=== PATIENT | female | born 1970 | race Caucasian/White ===

== ENCOUNTER 2016-08-26 17:13 | Emergency (ER) | payer BC ==
[~2016-08-26] VITALS: Ht 175.3 cm; Wt 123.5 kg
[~2016-08-26 17:13] MED LIST: ALBUAER9 INH; CHOL20005 PO; CYCL10TA6 PO; LORA-741 PO; MONT1TAB3 PO; MULTTAB58 PO; PRLSR20 PO; TRIA0.1C20 TD; VITA400C15 PO
[2016-08-26 17:21] VITALS: TEMP 37; Ht 175.3 cm; Wt 123.5 kg
[2016-08-26] MEDS ORDERED: SODIUM CHLORIDE 0.9% 1000ML 1,000 ML IV STA (17:49)
[2016-08-26] MEDS ORDERED: MoRPHine SULFATE 10 MG/ML CARP/VIAL IV STA (17:49)
[2016-08-26] MEDS ORDERED: ONDANSETRON INJ 2 MG/ML 2 ML VIAL IV STA (17:49)
[2016-08-26 18:07] LABS: BASO % 0.2 %; BASO ABS # 0.02 K/uL (0-0.2); COMPLETE YES; EOS % 1.7 %; HEMATOCRIT 36.2 % (37-47); IG% 0.3 %; LYMPH % 22.6 %; LYMPH ABS # 2.34 K/uL (1.2-3.4); MEAN CELL VOLUME 81.9 fL (80-100); MEAN CORPUSCULAR HGB CONC 35.4 g/dl (32-36); MEAN PLATELET VOLUME 10.7 fL (7.4-10.4); MONO % 10.3 %; NEUT % 64.9 %; PLATELET COUNT 207 K/uL (130-400); RED BLOOD COUNT 4.42 M/uL (4.2-5.4); WHITE BLOOD COUNT 10.34 K/uL (4.8-10.8)
[2016-08-26] MEDS ORDERED: ALBUAER INH (18:20)
[2016-08-26] MEDS ORDERED: TRMCR130WC TD (18:20)
[2016-08-26] MEDS ORDERED: VTME400 PO (18:20)
[2016-08-26 18:22] LABS: URINE APPEARANCE CLEAR (CLEAR); URINE BILIRUBIN NEG (NEG); URINE COLOR YELLOW; URINE EPITHELIAL CELL AUTO >30 /lpf (0-5); URINE NITRITE NEG (NEG); URINE SPECIFIC GRAVITY 1.015 (1.000-1.030); UROBILINOGEN NEG (NEG)
[2016-08-26 18:27] LABS: BUN/CREATININE RATIO 13.8 (10-20); CALCIUM 8.6 mg/dl (8.5-10.1); CREATININE 0.69 mg/dl (0.60-1.20); POTASSIUM 3.7 mmol/L (3.5-5.1)
[2016-08-26 18:30] LABS: MANUAL MICROSCOPIC REQUIRED? NO; REVIEW REQ? NO
--- NOTE | 2016-08-26 18:39 | DIAGNOSTIC IMAGING REPORT ---
CT OF THE ABDOMEN AND PELVIS WITHOUT CONTRAST, STONE PROTOCOL CLINICAL HISTORY: Left flank pain and hematuria. COMPARISON STUDY: CT of the abdomen and pelvis July 12, 2015. TECHNIQUE: Helical axial images of the abdomen and pelvis were obtained without IV or oral contrast according to renal stone protocol. FINDINGS: No renal, ureteral or bladder calculi are present. There is no hydronephrosis or hydroureter. There is no perinephric infiltration. Evaluation of the remainder of the abdomen and pelvis is suboptimal on this unenhanced exam. There is no biliary ductal dilatation status post cholecystectomy. There is fatty infiltration of the liver. Borderline splenomegaly is unchanged. Unenhanced images of the adrenal glands and pancreas are normal. The caliber of small and large bowel are normal. The appendix is likely surgically absent. There is a 3 cm suspected left ovarian cyst. No lymphadenopathy is present. No suspicious skeletal lesions are present. There is a small fat-containing umbilical hernia. IMPRESSION: 1. No urinary calculi or hydronephrosis. 2. No acute process within the abdomen or pelvis on unenhanced exam. 3. Suspected left ovarian cysts measuring up to 3 cm. Electronically signed by: Yousif Leigh M.D. 08/26/2016 6:37 PM Dictated Date/Time: 08/26/2016 6:32 PM
[2016-08-26] MEDS ORDERED: MoRPHine SULFATE 4 MG/ML 1 ML CARP\\VIAL IV STA (18:53)
[2016-08-26 20:05] VITALS: BP 138/93; PULSE 78; O2SAT 96
--- NOTE | 2016-08-27 00:14 | EMERGENCY ROOM VISIT NOTE ---
ED Visit Note First contact with patient: 17:25 Chief Complaint: Severe left side abdominal pain. History of Present Illness: Ms. Hope is a 46 year-old white female who ambulates into the ED complaining of left lateral mid quadrant/flank pain. Historically patient reports of gastric ulcers, gallbladder disease, and pyelonephritis. Patient reports a gradual onset of pain that started yesterday morning. She reports she remembers doing yard work over the weekend but after the our work was over she was not experiencing any discomfort. She places her discomfort over the lateral border of the abdomen in the posterior axillary line at the L1- L2 area. She reports initially it was an achy sensation but has gradually increased and is now a sharp sensation. She currently rates her discomfort 9/ 10. She does feel the pain is radiating around the abdomen and into the right lower quadrant. Her pain worsens when she is sitting reclined and she has a slight decrease when she is sitting upright. She reports since 3 PM yesterday she has been alternating ibuprofen and acetaminophen every 3 hours with only minimal relief of her discomfort. Associated with her pain she reports that she has been nauseated but has not vomited. Patient denies fevers, chills, sweats, skin eruptions, skin color changes, upper respiratory tract symptoms, shortness of breath, chest pain, diarrhea, constipation, rectal bleeding, black/tarry stools, urinary symptoms, hematuria, vaginal bleeding, vaginal discharge, back/flank pain. Review of Systems: As noted above in history of present illness. All body systems were reviewed and found to be negative as noted above. Past Medical History: Asthma, bronchitis, pneumonia, unspecified skin disorder. Current Medications: Medications Dose Route/Sig Max Daily Dose Days Date Category Dose Instructions Aristocort 0.1% (Triamcinolone Acet) 90 Appln/30 Gm Cr 1 Appln TD UD PRN 08/26/16 Reported APPLY A THIN LAYER TO THE AFFECTED AREA(S) TWICE DAILY NEEDED Proventil Hfa (Albuterol Sulfate) 108 Mcg/Act Aer 1-2 Puffs INH Q4 PRN 08/26/16 Reported Vitamin E/Dl-Alpha (Tocopheryl Acet,Dl-Alpha) 400 Unit Cap 400 Unit PO DAILY 08/26/16 Reported Multivitamin (Multiple Vitamin) 1 Tab Tab 1 Tab PO DAILY 10/04/13 Reported Ativan (Lorazepam) 0.5 Mg Tab 0.5 Mg PO BID PRN 09/14/13 Reported Flexeril (Cyclobenzaprine Hcl) 10 Mg Tab 10 Mg PO BID PRN 09/14/13 Reported Prilosec (Omeprazole) Unknown Strength Capcr Unknown Dose PO BID 01/28/10 Reported Allergies to Medications: Patient denies. Social History: Patient is currently employed; she feels safe in her home environment; she denies tobacco use and admits to social alcohol use. Physical Examination: Vital Signs: Date Time Temp Pulse Resp B/P Pulse Ox O2 Delivery O2 Flow Rate FiO2 08/26/16 20:05 78 18 138/93 96 08/26/16 18:50 100 18 151/80 100 Room Air 08/26/16 17:21 37.0 89 20 161/105 98 Room Air GENERAL: 46-year-old female in mild to moderate distress due to pain, nontoxic- appearing, afebrile and hemodynamically stable. NEUROLOGICAL: Awake, alert and oriented to person, place and time. Answering questions appropriately and following commands. Normal gait. Good hand eye coordination. SKIN: Warm, dry and pink. No soft tissue eruptions or trauma noted. HEENT: Atraumatic and normocephalic. PERRLA. Sclera white and conjunctiva pink. Oral cavity moist and pink. Pharynx is nonerythematous or edematous. Speech normal. No lymphadenopathy. Trachea midline. No jugular venous distention. BACK: No tenderness over the bony thoracic or lumbar spine. Moderate tenderness in the lumbar paraspinous musculature in the same area of her pain without palpable spasm. No CVA tenderness. THORAX: Lungs sounds are clear to auscultation and equal bilaterally with symmetrical chest wall. No wheezing, rales or rhonchi. No crepitus, tenderness , subcutaneous air or deformities noted. HEART: Regular rate and rhythm. No gallops, rubs or murmurs are appreciated. ABDOMEN: Flat, soft and nontender. Positive bowel sounds in all quadrants. No guarding, rigidity or organomegaly. EXTREMITIES: Moves all extremities well on command and with purpose. All distal neurovascular statuses are intact and equal bilaterally. ED Course: Patient is assessed as noted above. Laboratory Testing: Test 08/26/16 17:30 08/26/16 18:00 Range/Units Urine Color YELLOW Urine Appearance CLEAR CLEAR Urine pH 7.0 4.5-7.5 Urine Specific [place] 1.015 1.000-1.030 Urine Protein NEG NEG Urine Glucose (UA) NEG NEG Urine Ketones NEG NEG Urine Occult Blood NEG NEG Urine Nitrite NEG NEG Urine Bilirubin NEG NEG Urine Urobilinogen NEG NEG Urine Leukocyte Esterase TRACE NEG Urine WBC (Auto) 1-5 0-5 /hpf Urine RBC (Auto) 0-4 0-4 /hpf Urine Hyaline Casts (Auto) 1-5 0-5 /lpf Urine Epithelial Cells (Auto) >30 0-5 /lpf Urine Bacteria (Auto) 1+ NEG Urine Test NEG NEG White Blood Count 10.34 4.8-10.8 K/uL Red Blood Count 4.42 4.2-5.4 M/uL Hemoglobin 12.8 12.0-16.0 g/dL Hematocrit 36.2 37-47 % Mean Corpuscular Volume 81.9 80-100 fL Mean Corpuscular Hemoglobin 29.0 25-34 pg Mean Corpuscular Hemoglobin Concent 35.4 32-36 g/dl Platelet Count 207 130-400 K/uL Mean Platelet Volume 10.7 7.4-10.4 fL Neutrophils (%) (Auto) 64.9 % Lymphocytes (%) (Auto) 22.6 % Monocytes (%) (Auto) 10.3 % Eosinophils (%) (Auto) 1.7 % Basophils (%) (Auto) 0.2 % Neutrophils # (Auto) 6.70 1.4-6.5 K/uL Lymphocytes # (Auto) 2.34 1.2-3.4 K/uL Monocytes # (Auto) 1.07 0.11-0.59 K/uL Eosinophils # (Auto) 0.18 0-0.5 K/uL Basophils # (Auto) 0.02 0-0.2 K/uL RDW Standard Deviation 39.8 36.4-46.3 fL RDW Coefficient of Variation 13.2 11.5-14.5 % Immature Granulocyte % (Auto) 0.3 % Immature Granulocyte # (Auto) 0.03 0.00-0.02 K/uL Sodium Level 140 136-145 mmol/L Potassium Level 3.7 3.5-5.1 mmol/L Chloride Level 105 98-107 mmol/L Carbon Dioxide Level 24 21-32 mmol/L Anion Gap 11.0 3-11 mmol/L Blood Urea Nitrogen 10 7-18 mg/dl Creatinine 0.69 0.60-1.20 mg/dl Est Creatinine Clear Calc Drug Dose 144.9 ml/min Estimated GFR () 121.8 Estimated GFR (Non- 105.1 BUN/Creatinine Ratio 13.8 10-20 Random Glucose 84 70-99 mg/dl Calcium Level 8.6 8.5-10.1 mg/dl Total Bilirubin 0.6 0.2-1 mg/dl Direct Bilirubin 0.1 0-0.2 mg/dl Aspartate Amino Transf (AST/SGOT) 15 15-37 U/L Alanine Aminotransferase (ALT/SGPT) 39 12-78 U/L Alkaline Phosphatase 36 45-117 U/L Total Protein 6.8 6.4-8.2 gm/dl Albumin 3.8 3.4-5.0 gm/dl Lipase 98 73-393 U/L Noncontrast Abdominal/Pelvic CT: Was reviewed by myself and read by the radiologist showing no renal, ureter or bladder calculi, no hydronephrosis or hydroureter. No perinephric infiltration. No biliary duct dilatation, status post cholecystectomy. Fatty infiltration of liver. Borderline splenomegaly a unchanged from previous CT. Adrenal and pancreas appear normal. Normal- appearing caliber of the small and large bowel. Appendix was not identified. 3 cm left ovarian cyst. No lymphadenopathy. No suspicious skeletal lesions. Small fat-containing umbilical hernia. Patient was hydrated with normal saline and she received a total of 8 mg of morphine IV and 4 mg of Zofran IV for her symptoms. Patient was reassessed multiple times during her stay in the emergency department. Patient's case was reviewed with Dr. Guido; we agreed on diagnostic approach, treatment, disposition and plan. Patient was educated about candyight's findings and instructed on her treatment plan; she verbalizes understanding and agreement with this plan. Clinical Impression: Left flank pain. Decision-Making: Initially my differential diagnosis I considered kidney stone, pyelonephritis, worsening splenomegaly, constipation, diverticulitis, colitis, musculoskeletal disorder, pancreatitis and other causes. Disposition: Patient discharged home in stable condition; prior to departure she was reassessed and subjectively reported she was feeling better and rated her discomfort 3/10. Plan: Patient was encouraged to alternate acetaminophen and ibuprofen every 3 hours as needed for pain. Patient was encouraged to stay well-hydrated with increased clear fluids. Patient was encouraged to continue her current prescribed medications Patient was encouraged to follow-up with her primary care physician. Patient was encouraged return the ED for worsening/uncontrolled pain, fevers, vomiting, bloody stools or/concerning symptoms.
[2017-01-23] MEDS ORDERED: VITA400C3 PO (08:52)
[2017-01-23] MEDS ORDERED: CHOL1000 PO (08:52)
[2017-01-23] MEDS ORDERED: FEXO1TAB49 PO (08:52)
[2017-01-23] MEDS ORDERED: OMEP20TA40 PO (08:52)
[2017-01-29] MEDS ORDERED: MONT1TAB5 PO (12:52)
[2017-01-29] MEDS ORDERED: IBUP-103 PO (12:52)
== END 2016-08-26 20:10 | disposition home or self-care (01) ==
LOC: C.EDB 17:15 → C.EDC 20:10
DX: R10.31 Right lower quadrant pain (principal); J45.909 Unspecified asthma, uncomplicated; Z87.01 Personal history of pneumonia (recurrent); Z79.899 Other long term (current) drug therapy

== ENCOUNTER → 2017-01-23 | Outpatient (CLI) | payer BC ==
[~2017-01-23] MED LIST changes: +ALBUAER INH; -ALBUAER9 INH; +CHOL1000 PO; -CHOL20005 PO; +FEXO1TAB49 PO; +IBUP-103 PO; -MONT1TAB3 PO; +MONT1TAB5 PO; +OMEP20TA40 PO; -TRIA0.1C20 TD; +TRMCR130WC TD; -VITA400C15 PO; +VITA400C3 PO; +VTME400 PO
--- NOTE | 2017-01-23 16:02 | MAMMOGRAPHY REPORT ---
BILATERAL DIGITAL SCREENING MAMMOGRAM TOMOSYNTHESIS WITH CAD: 01/23/2017 CLINICAL HISTORY: Asymptomatic. Personal history of breast cancer. TECHNIQUE: Breast tomosynthesis in addition to standard 2D mammography was performed. Current study was also evaluated with a Computer Aided Detection (CAD) system. COMPARISON: Comparison is made to exams dated: 10/18/2014 mammogram, 02/02/2013 mammogram, 12/02/2011 ml mogram, 11/26/2010 mammogram, 11/07/2009 mammogram - [facility], and 09/09/2006. BREAST COMPOSITION: The tissue of both breasts is heterogeneously dense, which may obscure small mas ses. FINDINGS: No suspicious masses, calcifications, or areas of architectural distortion are noted in ei ther breast. There has been no significant interval change compared to prior exams. There are stable postsurgical changes in the left breast, with a linear scar marker denoting a scar on the left super ior breast. A few scattered bilateral benign-appearing calcifications are again noted. IMPRESSION: ACR BI-RADS CATEGORY 2: BENIGN There is no mammographic evidence of malignancy. A 1 year screening mammogram is recommended. The pa tient will receive written notification of the results. Approximately 10% of breast cancers are not detected with mammography. A negative mammographic report should not delay biopsy if a clinically suggestive mass is present. Armida Alcala M.D. /:01/23/2017 15:44:07 County Demonstrator: Ade Gonzalez [facility] letter sent: Normal 1/2 BI-RADS Code: ACR BI-RADS Category 2: Benign
== END | disposition home or self-care (01) ==
LOC: C.MAMM 14:21
PROVIDERS: ATTEND Obstetrics & Gynecology
DX: Z12.31 Encounter for screening mammogram for malignant neoplasm of breast (principal)

== ENCOUNTER → 2017-01-29 | Day surgery (SDC) | payer BC ==
[2017-01-23 08:52] VITALS: Ht 172.7 cm; Wt 122.7 kg
[~2017-01-29] VITALS: Ht 172.7 cm; Wt 122.7 kg
[~2017-01-29] MED LIST changes: +LIDOCAINE HCL 2% 2 ML VIAL (20MG/ML) ONE; -MULTTAB58 PO; +ONDANSETRON INJ 2 MG/ML 2 ML VIAL ONE; -PRLSR20 PO; +PROPOFOL IV EMULSION 10 MG/ML 20 ML VIAL IV ONE; +SODIUM CHLORIDE 0.9% 500ML 500 ML IV ONE; -TRMCR130WC TD; -VTME400 PO
--- NOTE | 2017-01-29 13:36 | Endo History and Physical ---
History & Physical Date of Service: Jan 29, 2017. Chief Complaint: Acid Reflux, Dysphagia Referring Physician: Dr. Graves History of Present Illness 46 yo CF who presents for EGD secondary to GERD and Dysphagia. Past Medical History Fractures, Asthma, Gastrointestinal Disorder, Anxiety, Reflux, Cancer, Depression Past Surgical History Hx Cardiac Surgery: No Hx Internal Defibrillator: No Hx Pacemaker: No Hx Abdominal Surgery: Yes (LAP AZUL, APPY, LAPAROSCOPY X MANY(GYNE)) Hx of Implantable Prosthesis: No Hx Post-Op Nausea and Vomiting: Yes Hx Cancer Surgery: Yes (PARTIAL MASTECTOMY, AXILLARY NODE DISECTION) Hx Thoracic Surgery: No Hx Orthopedic: No Hx Urinary Tract Surgery: No Family History None Social History Smoking Status: Former Smoker Hx Substance Use: No Hx Alcohol Use: Yes (5 A WEEK) Allergies Coded Allergies: NO KNOWN DRUG ALLERGIES (Verified Allergy, Mild, ., 01/29/17) Adhesives (Verified Allergy, Unknown, RED;RAW;TORN SKIN, 01/29/17) Current Medications Reported Home Medications Medications Dose Route/Sig Max Daily Dose Days Date Category Advil (Ibuprofen) 200 Mg Tab 200-600 Mg PO Q4H 01/29/17 Reported Montelukast Sodium 10 Mg Tab 1 Tab PO DAILY 30 01/29/17 Reported Vitamin E 400 Iu (Vitamin E) 400 Unit Cap 400 Inter.unit PO QAM 01/23/17 Reported Vitamin D3 (Cholecalciferol) 1,000 Unit Tab 1 Tab PO QAM 01/23/[address] [facility] Omeprazole (Omeprazole) 20 Mg Tab 20 Mg PO BID 01/23/17 Reported Proventil Hfa (Albuterol Sulfate) 108 Mcg/Act Aer 1-2 Puffs INH Q4 PRN 08/26/16 Reported Ativan (Lorazepam) 0.5 Mg Tab 0.5 Mg PO BID PRN 09/14/13 Reported Flexeril (Cyclobenzaprine Hcl) 10 Mg Tab 10 Mg PO BID PRN 09/14/13 Reported Vital Signs Weight (Kilograms): 122.73 Height (Feet): 5 Height (Inches): 8 Date Time Temp Pulse Resp B/P (MAP) Pulse Ox O2 Delivery O2 Flow Rate FiO2 01/29/17 13:01 36.8 102 18 165/93 (117) 96 Room Air Physical Exam General Appearance: WD/WN, no apparent distress Respiratory/Chest: Auscultation: breath sounds normal Cardiovascular: Heart Auscultation: RRR Abdomen: Bowel Sounds: normal Inspection & Palpation: soft, non-distended, no tenderness, guarding & rebound Assessment and Plan Assessment: 46 yo CF who presents for EGD secondary to GERD and Dysphagia. Plan: Proceed with EGD.
--- NOTE | 2017-01-29 13:57 | Discharge Instructions ---
Endoscopy Patient Instructions Date / Procedure(s) Performed Jan 29, 2017. EGD Allergy Information Coded Allergies: NO KNOWN DRUG ALLERGIES (Verified Allergy, Mild, ., 01/29/17) Adhesives (Verified Allergy, Unknown, RED;RAW;TORN SKIN, 01/29/17) Discharge Date / Findings Jan 29, 2017. Gastric biopsies Medication Instructions OK to resume all medications today as prescribed Reported Home Medications Medications Dose Route/Sig Max Daily Dose Days Date Category Advil (Ibuprofen) 200 Mg Tab 200-600 Mg PO Q4H 01/29/17 Reported Montelukast Sodium 10 Mg Tab 1 Tab PO DAILY 30 01/29/17 Reported Vitamin E 400 Iu (Vitamin E) 400 Unit Cap 400 Inter.unit PO QAM 01/23/17 Reported Vitamin D3 (Cholecalciferol) 1,000 Unit Tab 1 Tab PO QAM 01/23/17 [address] [facility] Omeprazole (Omeprazole) 20 Mg Tab 20 Mg PO BID 01/23/17 Reported Proventil Hfa (Albuterol Sulfate) 108 Mcg/Act Aer 1-2 Puffs INH Q4 PRN 08/26/16 Reported Ativan (Lorazepam) 0.5 Mg Tab 0.5 Mg PO BID PRN 09/14/13 Reported Flexeril (Cyclobenzaprine Hcl) 10 Mg Tab 10 Mg PO BID PRN 09/14/13 Reported Provider Instructions Activity Restrictions - No exercising or heavy lifting for 24 hours. - Do not drink alcohol the day of the procedure. - Do not drive a car or operate machinery until the day after the procedure. - Do not make any important decisions or sign important papers in 24 hours after the procedure. Following Day: - Return to full activity which may include returning to work/school. Diet Start your diet with liquids and light foods (jello, soup, juice, toast). Then eat your usual diet if not nauseated. Treatment For Common After Affects For mild abdominal pain, bloating, or excessive gas: - Rest - Eat lightly - Lie on right side Follow-Up Information Follow-up with Dr. Isbell as scheduled Anesthesia Information What You Should Know You have had a procedure that required some medicine to reduce anxiety and discomfort. This treatment is called moderate sedation. After receiving the treatment, you may be sleepy, but you will be able to breathe on your own. The effects of the treatment may last for several hours. Follow these instructions along with Activity/Diet recommendations noted above: * Do NOT do anything where dizziness or clumsiness would be dangerous. * Rest quietly at home today, then you can be up and about tomorrow. * Have a responsible person stay with you the rest of today. * You may have had an I.V. today. If so, you may take the dressing off later today. Recommendations Call your doctor if: * Trouble breathing * Continuous vomiting for more than 24 hours * Temperature above 101 degrees * Severe abdominal pain or bloating * Pain not relieved by pain medicine ordered * There is increased drainage or redness from any incision * A large amount of rectal bleeding greater than 2-3 tablespoons. (If you had a polyp/s removed or have hemorrhoids, a small amount of blood - from the rectum is to be expected.) * You have any unanswered questions or concerns. IN THE EVENT OF A SERIOUS EMERGENCY, GO TO THE NEAREST EMERGENCY ROOM Your discharge instructions were prepared by provider Josiah Bueno. Patient Instructions Signature Page Bree Hope Patient (or Guardian) Signature/Date: I have read and understand the instructions given to me by my caregivers. Caregiver/RN/Doctor Signature/Date: The above-named patient and/or guardian has received patient instructions on this date. + Original Patient Signature Page (only) stays with chart. Please make copy for patient.
--- NOTE | 2017-01-29 14:00 | GI REPORT ---
Procedure Date: 01/29/2017 1:31 PM Procedure: Upper GI endoscopy Indications: Dysphagia, Gastro-esophageal reflux disease Medicines: Monitored Anesthesia Care Complications: No immediate complications. Estimated Blood Loss: Estimated blood loss: none. Procedure: Pre-Anesthesia Assessment: - Prior to the procedure, a History and Physical was performed, and patient medications and allergies were reviewed. The patient's tolerance of previous anesthesia was also reviewed. The risks and benefits of the procedure and the sedation options and risks were discussed with the patient. All questions were answered, and informed consent was obtained. Prior Anticoagulants: The patient has taken no previous anticoagulant or antiplatelet agents. ASA Grade Assessment: II - A patient with mild systemic disease. After reviewing the risks and benefits, the patient was deemed in satisfactory condition to undergo the procedure. After obtaining informed consent, the endoscope was passed under direct vision. Throughout the procedure, the patient's blood pressure, pulse, and oxygen saturations were monitored continuously. The scope was introduced through the mouth, and advanced to the second part of duodenum. The upper GI endoscopy was accomplished without difficulty. The patient tolerated the procedure well. Findings: The esophagus was normal. The entire examined stomach was normal. Biopsies were taken with a cold forceps for Helicobacter pylori testing. The examined duodenum was normal. Impression: - Normal esophagus. - Normal stomach. Biopsied. - Normal examined duodenum. Recommendation: - Resume previous diet. - Continue present medications. - Await pathology results. - Return to GI clinic as previously scheduled. Josiah Bueno DO 01/29/2017 1:59:34 PM This report has been signed electronically. Note Initiated On: 01/29/2017 1:31 PM I attest to the content of the Intraoperative Record and orders documented therein, exceptions below
--- NOTE | 2017-01-29 14:15 | Anesthesiology Progress Note ---
Anesthesia Post Op Note Date & Time Jan 29, 2017 at 14:15 Vital Signs Pain Intensity: 0 Vital Signs Past 12 Hours Date Time Temp Pulse Resp B/P (MAP) Pulse Ox O2 Delivery O2 Flow Rate FiO2 01/29/17 14:12 93 16 119/82 (94) 97 Room Air 01/29/17 13:57 101 16 115/80 (92) 97 Room Air 01/29/17 13:01 36.8 102 18 165/93 (117) 96 Room Air Notes Mental Status: alert / awake / arousable, participated in evaluation Pt Amnestic to Procedure: Yes Nausea / Vomiting: adequately controlled Pain: adequately controlled Airway Patency, RR, SpO2: stable & adequate BP & HR: stable & adequate Hydration State: stable & adequate Anesthetic Complications: no major complications apparent
[2017-01-29 14:27] VITALS: BP 155/79; PULSE 91; O2SAT 95
== END | disposition home or self-care (01) ==
LOC: C.GI 12:39
PROVIDERS: ATTEND Internal Medicine
DX: R13.10 Dysphagia, unspecified (principal); K21.9 Gastro-esophageal reflux disease without esophagitis; J45.909 Unspecified asthma, uncomplicated; F41.9 Anxiety disorder, unspecified; Z85.3 Personal history of malignant neoplasm of breast; Z90.49 Acquired absence of other specified parts of digestive tract; Z90.89 Acquired absence of other organs; Z90.10 Acquired absence of unspecified breast and nipple; Z87.891 Personal history of nicotine dependence; Z68.41 Body mass index [BMI] 40.0-44.9, adult

== ENCOUNTER → 2017-02-18 | Day surgery (SDC) | payer BC ==
[2017-02-12 07:50] VITALS: BMI 41.0
[~2017-02-18] VITALS: Ht 172.7 cm; Wt 122.7 kg
[~2017-02-18] MED LIST changes: -FEXO1TAB49 PO; +MIDAZOLAM HCL 1 MG/ML 2ML VIAL ONE; -ONDANSETRON INJ 2 MG/ML 2 ML VIAL ONE; -SODIUM CHLORIDE 0.9% 500ML 500 ML IV ONE
--- NOTE | 2017-02-18 10:03 | Endo History and Physical ---
History & Physical Date of Service: Feb 18, 2017. Chief Complaint: Diarrhea Referring Physician: Dr. Spence History of Present Illness 46 yo CF who presents for Colonoscopy secondary to diarrhea. Past Medical History Fractures, Asthma, Gastrointestinal Disorder, Anxiety, Reflux, Cancer, Depression Past Surgical History Hx Cardiac Surgery: No Hx Internal Defibrillator: No Hx Pacemaker: No Hx Abdominal Surgery: Yes (LAP AZUL, APPY, LAPAROSCOPY X MANY(GYNE)) Hx of Implantable Prosthesis: No Hx Post-Op Nausea and Vomiting: Yes Hx Cancer Surgery: Yes (PARTIAL MASTECTOMY, AXILLARY NODE DISECTION) Hx Thoracic Surgery: No Hx Orthopedic: No Hx Urinary Tract Surgery: No Family History None Social History Smoking Status: Former Smoker Hx Substance Use: No Hx Alcohol Use: Yes (5 A WEEK) Allergies Coded Allergies: NO KNOWN DRUG ALLERGIES (Verified Allergy, Mild, ., 02/18/17) Adhesives (Verified Allergy, Unknown, RED;RAW;TORN SKIN, 02/12/17) Current Medications Reported Home Medications Medications Dose Route/Sig Max Daily Dose Days Date Category Advil (Ibuprofen) 200 Mg Tab 200-600 Mg PO Q4H 01/29/17 Reported Montelukast Sodium 10 Mg Tab 1 Tab PO DAILY 30 01/29/17 Reported Vitamin E 400 Iu (Vitamin E) 400 Unit Cap 400 Inter.unit PO QAM 01/23/17 Reported Vitamin D3 (Cholecalciferol) 1,000 Unit Tab 1 Tab PO QAM 01/23/17 [address] [facility] Omeprazole (Omeprazole) 20 Mg Tab 20 Mg PO BID 01/23/17 Reported Proventil Hfa (Albuterol Sulfate) 108 Mcg/Act Aer 1-2 Puffs INH Q4 PRN 08/26/16 Reported Ativan (Lorazepam) 0.5 Mg Tab 0.5 Mg PO BID PRN 09/14/13 Reported Flexeril (Cyclobenzaprine Hcl) 10 Mg Tab 10 Mg PO BID PRN 09/14/13 Reported Vital Signs Weight (Kilograms): 122.73 Height (Feet): 5 Height (Inches): 8 Physical Exam General Appearance: WD/WN, no apparent distress Respiratory/Chest: Auscultation: breath sounds normal Cardiovascular: Heart Auscultation: RRR Abdomen: Bowel Sounds: normal Inspection & Palpation: soft, non-distended, no tenderness, guarding & rebound Assessment and Plan Assessment: 46 yo CF who presents for Colonoscopy secondary to diarrhea. Plan: Proceed with colonoscopy.
[2017-02-18 10:04] VITALS: Ht 172.7 cm; Wt 122.7 kg
--- NOTE | 2017-02-18 10:37 | Discharge Instructions ---
Endoscopy Patient Instructions Date / Procedure(s) Performed Feb 18, 2017. Colonoscopy Allergy Information Coded Allergies: NO KNOWN DRUG ALLERGIES (Verified Allergy, Mild, ., 02/18/17) Adhesives (Verified Allergy, Unknown, RED;RAW;TORN SKIN, 02/12/17) Discharge Date / Findings Feb 18, 2017. Random colon biopsies Stool aspirate collected Diverticulosis Internal hemorrhoids Medication Instructions 1) OK to resume all medications today as prescribed Reported Home Medications Medications Dose Route/Sig Max Daily Dose Days Date Category Advil (Ibuprofen) 200 Mg Tab 200-600 Mg PO Q4H 01/29/17 Reported Montelukast Sodium 10 Mg Tab 1 Tab PO DAILY 30 01/29/17 Reported Vitamin E 400 Iu (Vitamin E) 400 Unit Cap 400 Inter.unit PO QAM 01/23/17 Reported Vitamin D3 (Cholecalciferol) 1,000 Unit Tab 1 Tab PO QAM 01/23/17 Reported [facility] Omeprazole (Omeprazole) 20 Mg Tab 20 Mg PO BID 01/23/17 Reported Proventil Hfa (Albuterol Sulfate) 108 Mcg/Act Aer 1-2 Puffs INH Q4 PRN 08/26/16 Reported Ativan (Lorazepam) 0.5 Mg Tab 0.5 Mg PO BID PRN 09/14/13 Reported Flexeril (Cyclobenzaprine Hcl) 10 Mg Tab 10 Mg PO BID PRN 09/14/13 Reported Provider Instructions Activity Restrictions - No exercising or heavy lifting for 24 hours. - Do not drink alcohol the day of the procedure. - Do not drive a car or operate machinery until the day after the procedure. - Do not make any important decisions or sign important papers in 24 hours after the procedure. Following Day: - Return to full activity which may include returning to work/school. Diet Start your diet with liquids and light foods (jello, soup, juice, toast). Then eat your usual diet if not nauseated. Treatment For Common After Affects For mild abdominal pain, bloating, or excessive gas: - Rest - Eat lightly - Lie on right side Follow-Up Information Follow-up with Dr. Graves as scheduled Anesthesia Information What You Should Know You have had a procedure that required some medicine to reduce anxiety and discomfort. This treatment is called moderate sedation. After receiving the treatment, you may be sleepy, but you will be able to breathe on your own. The effects of the treatment may last for several hours. Follow these instructions along with Activity/Diet recommendations noted above: * Do NOT do anything where dizziness or clumsiness would be dangerous. * Rest quietly at home today, then you can be up and about tomorrow. * Have a responsible person stay with you the rest of today. * You may have had an I.V. today. If so, you may take the dressing off later today. Recommendations Call your doctor if: * Trouble breathing * Continuous vomiting for more than 24 hours * Temperature above 101 degrees * Severe abdominal pain or bloating * Pain not relieved by pain medicine ordered * There is increased drainage or redness from any incision * A large amount of rectal bleeding greater than 2-3 tablespoons. (If you had a polyp/s removed or have hemorrhoids, a small amount of blood - from the rectum is to be expected.) * You have any unanswered questions or concerns. IN THE EVENT OF A SERIOUS EMERGENCY, GO TO THE NEAREST EMERGENCY ROOM Your discharge instructions were prepared by provider Josiah Bueno. Patient Instructions Signature Page [place] [place] Patient (or Guardian) Signature/Date: I have read and understand the instructions given to me by my caregivers. Caregiver/RN/Doctor Signature/Date: The above-named patient and/or guardian has received patient instructions on this date. + Original Patient Signature Page (only) stays with chart. Please make copy for patient.
--- NOTE | 2017-02-18 10:48 | GI REPORT ---
Procedure Date: 02/18/2017 10:15 AM Procedure: Colonoscopy Indications: Chronic diarrhea Medicines: Monitored Anesthesia Care Complications: No immediate complications. Estimated Blood Loss: Estimated blood loss: none. Procedure: Pre-Anesthesia Assessment: - Prior to the procedure, a History and Physical was performed, and patient medications and allergies were reviewed. The patient's tolerance of previous anesthesia was also reviewed. The risks and benefits of the procedure and the sedation options and risks were discussed with the patient. All questions were answered, and informed consent was obtained. Prior Anticoagulants: The patient has taken no previous anticoagulant or antiplatelet agents. ASA Grade Assessment: II - A patient with mild systemic disease. After reviewing the risks and benefits, the patient was deemed in satisfactory condition to undergo the procedure. After I obtained informed consent, the scope was passed under direct vision. Throughout the procedure, the patient's blood pressure, pulse, and oxygen saturations were monitored continuously. The On-site loaner was introduced through the anus and advanced to the terminal ileum. The colonoscopy was performed without difficulty. The patient tolerated the procedure well. The quality of the bowel preparation was good. The terminal ileum, ileocecal valve, appendiceal orifice, and rectum were photographed. Findings: Multiple small-mouthed diverticula were found in the sigmoid colon. Non-bleeding internal hemorrhoids were found during retroflexion. The hemorrhoids were small. Several random biopsies were obtained with cold forceps for histology in the entire colon. Fluid aspiration for cytology was performed in the entire colon. Impression: - Diverticulosis in the sigmoid colon. - Non-bleeding internal hemorrhoids. - Several random biopsies were obtained in the entire colon. - Fluid aspiration was performed. Recommendation: - Resume previous diet. - Continue present medications. - Repeat colonoscopy for surveillance based on pathology results. - Return to GI clinic as previously scheduled. Josiah Bueno DO 02/18/2017 10:47:07 AM This report has been signed electronically. Note Initiated On: 02/18/2017 10:15 AM I attest to the content of the Intraoperative Record and orders documented therein, exceptions below
--- NOTE | 2017-02-18 10:49 | Anesthesiology Progress Note ---
Anesthesia Post Op Note Date & Time Feb 18, 2017 at 10:49 Vital Signs Pain Intensity: 0 Vital Signs Past 12 Hours Date Time Temp Pulse Resp B/P (MAP) Pulse Ox O2 Delivery O2 Flow Rate FiO2 02/18/17 10:34 97 12 127/81 (96) 98 Room Air 02/18/17 10:10 36.8 97 20 143/97 (112) 95 Room Air Notes Mental Status: alert / awake / arousable, participated in evaluation Pt Amnestic to Procedure: Yes Nausea / Vomiting: adequately controlled Pain: adequately controlled Airway Patency, RR, SpO2: stable & adequate BP & HR: stable & adequate Hydration State: stable & adequate Anesthetic Complications: no major complications apparent
[2017-02-18 11:04] VITALS: BP 123/77; PULSE 92; O2SAT 98
== END | disposition home or self-care (01) ==
LOC: C.GI 09:34
PROVIDERS: ATTEND Internal Medicine
DX: R19.7 Diarrhea, unspecified (principal); K57.90 Diverticulosis of intestine, part unspecified, without perforation or abscess without bleeding; K64.8 Other hemorrhoids; J45.909 Unspecified asthma, uncomplicated; K21.9 Gastro-esophageal reflux disease without esophagitis; Z87.81 Personal history of (healed) traumatic fracture; F41.9 Anxiety disorder, unspecified; Z90.49 Acquired absence of other specified parts of digestive tract; Z90.89 Acquired absence of other organs; Z87.891 Personal history of nicotine dependence; Z85.3 Personal history of malignant neoplasm of breast; Z90.10 Acquired absence of unspecified breast and nipple; Z92.21 Personal history of antineoplastic chemotherapy

== ENCOUNTER → 2017-04-08 | Outpatient (CLI) | payer BC ==
[~2017-04-08] MED LIST changes: -LIDOCAINE HCL 2% 2 ML VIAL (20MG/ML) ONE; -MIDAZOLAM HCL 1 MG/ML 2ML VIAL ONE; -PROPOFOL IV EMULSION 10 MG/ML 20 ML VIAL IV ONE
[2017-04-08 14:50] LABS: ALT/SGPT 57 U/L (12-78); AST/SGOT 25 U/L (15-37); BLOOD UREA NITROGEN 10 mg/dl (7-18); BUN/CREATININE RATIO 15.2 (10-20); CALCIUM 8.7 mg/dl (8.5-10.1); CARBON DIOXIDE 29 mmol/L (21-32); CHLORIDE 105 mmol/L (98-107); CREATININE 0.66 mg/dl (0.60-1.20); GLUCOSE 89 mg/dl (70-99); GLUCOSE,FASTING 89 mg/dl (70-99); POTASSIUM 3.8 mmol/L (3.5-5.1); SODIUM 138 mmol/L (136-145)
[2017-04-08 14:59] LABS: ALKALINE PHOSPHATASE 42 U/L (45-117); CHOLESTEROL 169 mg/dl (0-200); CHOLESTEROL/HDL RATIO 4.2; HDL CHOLESTEROL 40 mg/dl; INSULIN FASTING 13.5 mU/L (3-25); LDL CHOLESTEROL CALCULATED 105 mg/dl; TRIGLYCERIDES 119 mg/dl (0-150); VERY LOW DENSITY LIPOPROT CALC 24 mg/dl
[2017-04-09 05:56] LABS: ESTIMATED AVERAGE GLUCOSE 111 mg/dl; HA1C FLAG Normal (Normal)
== END | disposition home or self-care (01) ==
LOC: C.LAB1850 13:34
PROVIDERS: ATTEND Internal Medicine Endocrinology, Diabetes & Metabolism
DX: E88.81 Metabolic syndrome and other insulin resistance (principal); E55.9 Vitamin D deficiency, unspecified; E04.9 Nontoxic goiter, unspecified; E66.9 Obesity, unspecified

== ENCOUNTER → 2017-04-13 | Outpatient (CLI) | payer BC ==
--- NOTE | 2017-04-13 13:51 | DIAGNOSTIC IMAGING REPORT ---
SOFT TISS HEAD/NECK-THYROID CLINICAL HISTORY: 47 years-old Female presenting with E04.9 Goiter. TECHNIQUE: Real-time grayscale and color Doppler ultrasound imaging of the thyroid and base of the neck was performed. COMPARISON: CT chest from 2010. FINDINGS: Right lobe: Normal echogenicity and echotexture. The right lobe of the thyroid measures 2.4 x 5.6 x 1.8 cm. No nodules. No parenchymal hyperemia. Left lobe: Normal echogenicity and echotexture. The left lobe of the thyroid measures 1.9 x 5.2 x 1.8 cm. No nodules. No parenchymal hyperemia. Isthmus: The isthmus measures 3 mm in thickness. No nodules. IMPRESSION: Normal thyroid ultrasound. Electronically signed by: Raad Velasquez M.D. 04/13/2017 1:50 PM Dictated Date/Time: 04/13/2017 1:49 PM
== END | disposition home or self-care (01) ==
LOC: C.ULTR 12:58
PROVIDERS: ATTEND Internal Medicine Endocrinology, Diabetes & Metabolism
DX: E04.9 Nontoxic goiter, unspecified (principal)

== ENCOUNTER 2017-09-13 13:33 | Emergency (ER) | payer BC ==
[~2017-09-13] VITALS: Ht 172.7 cm; Wt 130.9 kg
[2017-09-13 13:56] VITALS: Ht 172.7 cm; Wt 130.9 kg
[2017-09-13] MEDS ORDERED: DEXAMETHASONE INJ 10 MG in SYRINGE 0 ML IV STA (14:31)
[2017-09-13] MEDS ORDERED: KETOROLAC TROMETHAMINE 30 MG/ML VIAL IV STA (14:31)
[2017-09-13] MEDS ORDERED: CLINDAMYCIN 600 MG/54 ML D5W IV STA (14:31)
[2017-09-13] MEDS ORDERED: SODIUM CHLORIDE 0.9% 1000ML 1,000 ML IV STA (14:35)
--- NOTE | 2017-09-13 14:40 | EMERGENCY ROOM VISIT NOTE ---
History Report prepared by Nikolai: Reed Morales Under the Supervision of: Dr. Margarito Archer M.D. First contact with patient: 14:23 Chief Complaint: THROAT PAIN/INJURY Stated Complaint: SORE THROAT, UNABLE TO MOVE NECK DUE TO SWELLING History of Present Illness The patient is a 47 year old female who presents to the Emergency Room with complaints of a severe and constant sore throat that began two days ago. The patient notes that she went to bed Thursday night with a minor sore throat, but woke up on Thursday with much more severe symptoms and stiffness in her neck. She reports that she cannot get food down today secondary to her throat pain and is tender to palpation of her neck. The patient denies smoking or chewing tobacco, any history of strep throat or diabetes, or any pain in her teeth. The patient states that she currently takes Omeprazole and also takes Irma as needed. Source of History: patient Onset: 2 days ago. Position: tongue Symptom Intensity: severe Timing: constant Associated Symptoms: + sorethroat, + cough, + neck pain (stiffness) Note: Denies: smoking or chewing tobacco, any history of strep, history of diabetes, or any pain in her teeth. Review of Systems See HPI for pertinent positives & negatives. A total of 10 systems reviewed and were otherwise negative. Past Medical & Surgical Medical Problems: (1) Carcinoma of breast (2) Chronic cholecystitis Surgical Problems: (1) Hx of appendectomy (2) Hx of cholecystectomy Family History Diabetes mellitus FH: cancer FH: gallbladder disease FH: heart disease Hypertension Kidney disease Social History Smoking Status: Former Smoker Alcohol Use: occasionally Drug Use: none Marital Status: Housing Status: lives with family Occupation Status: employed Current/Historical Medications Scheduled Cholecalciferol (Vitamin D3), 1 TAB PO QAM Ibuprofen Tab (Advil), 200-600 MG PO Q4H Montelukast Sodium (Montelukast Sodium), 1 TAB PO DAILY Omeprazole ([facility] Omeprazole), 20 MG PO BID Vitamin E (Vitamin E 400 Iu), 400 INTER.UNIT PO QAM Scheduled PRN Albuterol Sulfate (Proventil Hfa), 1-2 PUFFS INH Q4 PRN for ASTHMA FLARE Cyclobenzaprine Hcl (Flexeril), 10 MG PO BID PRN Lorazepam (Ativan), 0.5 MG PO BID PRN for Anxiety and/or Sedation Allergies Coded Allergies: NO KNOWN DRUG ALLERGIES (Verified Allergy, Mild, ., 02/18/17) Adhesives (Verified Allergy, Unknown, RED;RAW;TORN SKIN, 02/12/17) Physical Exam Vital Signs Date Time Temp Pulse Resp B/P (MAP) Pulse Ox O2 Delivery O2 Flow Rate FiO2 09/13/17 21:12 37.4 95 16 165/79 96 09/13/17 18:32 109 16 175/113 94 Room Air 09/13/17 16:40 38.0 124 16 164/108 96 09/13/17 15:21 118 09/13/17 15:15 117 16 160/113 96 09/13/17 13:56 39.3 123 18 183/91 97 Room Air 09/13/17 13:56 97 Room Air Physical Exam GENERAL: Patient is a healthy-appearing well-nourished female HEAD: Normocephalic atraumatic EYES: Ocular movements intact pupils equal and react to light OROPHARYNX mucous membranes are moist no exudates present no erythema or edema present. Swallowing her own saliva. No evidence of peritonsillar abscess. NECK: Supple no nuchal rigidity. No evidence of meningitis or encephalitis on exam. CHEST: Good equal expansion LUNGS: Clear and equal to auscultation CARDIAC: Normal S1 and S2 ABDOMEN: Soft nontender no guarding BACK: No CVA tenderness EXTREMITIES: No pain upon palpation normal muscle strength in all groups no clubbing cyanosis or edema NEURO: Patient is following commands and answering questions appropriately. Alert and oriented x3 Cranial Nerves 2-12 grossly intact Medical Decision & Procedures ER Provider Diagnostic Interpretation: Radiology results as stated below per my review and radiologist interpretation: CHEST ONE VIEW PORTABLE CLINICAL HISTORY: Pt c/o neck pain dyspnea COMPARISON STUDY: 06/03/2015 FINDINGS: The bones soft tissues and hemidiaphragms are normal. The cardiomediastinal silhouette is normal. The lungs are clear. The pulmonary vasculature is normal. IMPRESSION: Negative chest. The above report was generated using voice recognition software. It may contain grammatical, syntax or spelling errors. Electronically signed by: Willis Burton M.D. 09/13/2017 2:53 PM Dictated Date/Time: 09/13/2017 2:53 PM SOFT TISSUE NECK WITH CLINICAL HISTORY: Pt c/o inability to swallow dysphagia TECHNIQUE: Transaxial acquisition with multi axial reformatted images COMPARISON STUDY: None FINDINGS: Findings consistent with a considerable soft tissue edematous change medially anterior to the vertebral column extending from C1 through C7. Density characteristics inconclusive but do suggest edematous tissue versus the possibility of a potential collection. There is no evidence for air containment. Maximum length is approximately 9 cm. Maximum transaxial dimensions are approximately 3 x 2 cm. This displaces the airway in a somewhat anterior fashion. There is no significant narrowing, however of the airway itself. There is no significant peripheral enhancement. There is no bony erosive process. The glottic and subglottic regions are unremarkable. The epiglottis is normal. Several reactive cervical nodes in the cervical chains bilaterally are present measuring up to 1.7 cm. IMPRESSION: 1. Findings suggesting a retropharyngeal collection and/or edematous tissue with measurements of 9 x 3 x 2 cm. 2. Density characteristics are indeterminate with this suggestive of either complex fluid/phlegmon, versus a slightly hyperdense abscess. 3. A mass is not entirely excluded although this is considered less likely. 4. The airway is displaced anteriorly although there is no evidence for airway compromise at this time. 5. Mild bilateral cervical adenopathy, possibly reactive. The above report was generated using voice recognition software. It may contain grammatical, syntax or spelling errors. Electronically signed by: Willis Burton M.D. 09/13/2017 4:03 PM Dictated Date/Time: 09/13/2017 3:52 PM Laboratory Results 09/13/17 15:00 Red Blood Count 5.16, Mean Corpuscular Volume 84.7, Mean Corpuscular Hemoglobin 28.5, Mean Corpuscular Hemoglobin Concent 33.6, Mean Platelet Volume 11.2, Neutrophils (%) (Auto) 77.8, Lymphocytes (%) (Auto) 12.9, Monocytes (%) (Auto) 7.9, Eosinophils (%) (Auto) 0.9, Basophils (%) (Auto) 0.1, Neutrophils # (Auto) 9.39, Lymphocytes # (Auto) 1.56, Monocytes # (Auto) 0.95, Eosinophils # (Auto) 0.11, Basophils # (Auto) 0.01 09/13/17 15:00 Test 09/13/17 14:52 09/13/17 14:54 09/13/17 15:00 Influenza Type A Antigen Neg for Influ A (NEG) Influenza Type B Antigen Neg for Influ B (NEG) Urine Color YELLOW Urine Appearance CLEAR (CLEAR) Urine pH 7.5 (4.5-7.5) Urine Specific [place] 1.023 (1.000-1.030) Urine Protein NEG (NEG) Urine Glucose (UA) NEG (NEG) Urine Ketones NEG (NEG) Urine Occult Blood NEG (NEG) Urine Nitrite NEG (NEG) Urine Bilirubin NEG (NEG) Urine Urobilinogen NEG (NEG) Urine Leukocyte Esterase NEG (NEG) White Blood Count 12.07 K/uL (4.8-10.8) Red Blood Count 5.16 M/uL (4.2-5.4) Hemoglobin 14.7 g/dL (12.0-16.0) Hematocrit 43.7 % (37-47) Mean Corpuscular Volume 84.7 fL (80-100) Mean Corpuscular Hemoglobin 28.5 pg (25-34) Mean Corpuscular Hemoglobin Concent 33.6 g/dl (32-36) Platelet Count 219 K/uL (130-400) Mean Platelet Volume 11.2 fL (7.4-10.4) Neutrophils (%) (Auto) 77.8 % Lymphocytes (%) (Auto) 12.9 % Monocytes (%) (Auto) 7.9 % Eosinophils (%) (Auto) 0.9 % Basophils (%) (Auto) 0.1 % Neutrophils # (Auto) 9.39 K/uL (1.4-6.5) Lymphocytes # (Auto) 1.56 K/uL (1.2-3.4) Monocytes # (Auto) 0.95 K/uL (0.11-0.59) Eosinophils # (Auto) 0.11 K/uL (0-0.5) Basophils # (Auto) 0.01 K/uL (0-0.2) RDW Standard Deviation 40.4 fL (36.4-46.3) RDW Coefficient of Variation 13.1 % (11.5-14.5) Immature Granulocyte % (Auto) 0.4 % Immature Granulocyte # (Auto) 0.05 K/uL (0.00-0.02) Anion Gap 8.0 mmol/L (3-11) Est Creatinine Clear Calc Drug Dose 125.8 ml/min Estimated GFR () 102.5 Estimated GFR (Non- 88.4 BUN/Creatinine Ratio 12.2 (10-20) Calcium Level 9.1 mg/dl (8.5-10.1) Total Bilirubin 0.8 mg/dl (0.2-1) Direct Bilirubin 0.2 mg/dl (0-0.2) Aspartate Amino Transf (AST/SGOT) 20 U/L (15-37) Alanine Aminotransferase (ALT/SGPT) 55 U/L (12-78) Alkaline Phosphatase 50 U/L (45-117) Total Protein 8.0 gm/dl (6.4-8.2) Albumin 3.8 gm/dl (3.4-5.0) Monoscreen NEG (NEG) Labs reviewed by ED physician. Medications Administered Medications (Trade) Dose Ordered Sig/Gunner Route Start Time Stop Time Status Last Admin Dose Admin Ketorolac Tromethamine (Toradol Inj) 30 mg NOW STAT IV 09/13/17 14:31 09/13/17 14:35 DC 09/13/17 15:14 30 MG Dexamethasone Sodium Phosphate 10 mg/Syringe 2.5 ml @ 1 mls/min NOW STAT IV 09/13/17 14:31 09/13/17 14:35 DC 09/13/17 15:54 1 MLS/MIN Clindamycin Phosphate (Cleocin 600mg/ 54ml D5W) 600 mg ONE STAT IV 09/13/17 14:31 09/13/17 14:35 DC 09/13/17 14:31 600 MG Sodium Chloride 1,000 ml @ 999 mls/hr Q1H1M STAT IV 09/13/17 14:35 09/13/17 15:35 DC 09/13/17 15:14 999 MLS/HR Hydrocodone Bit/ Homatropine Methylb (Hycodan Syrup) 5 ml NOW STAT PO 09/13/17 15:25 09/13/17 15:26 DC 09/13/17 16:05 5 ML Ondansetron HCl (Zofran Inj) 4 mg NOW STAT IV 09/13/17 15:58 09/13/17 16:00 DC 09/13/17 16:03 4 MG Acetaminophen 100 ml @ 400 mls/hr NOW STAT IV 09/13/17 15:58 09/13/17 16:12 DC 09/13/17 16:37 400 MLS/HR Cefepime HCl 2000 mg/Dextrose 122 ml @ 200 mls/hr NOW STAT IV 09/13/17 16:04 09/13/17 16:40 DC 09/13/17 16:36 200 MLS/HR Vancomycin HCl (Vancomycin 1gm/ 270ml Nss) 1 gm NOW STAT IV 09/13/17 16:04 09/13/17 16:06 DC 09/13/17 17:00 1 GM ED Course 1425: Past medical records reviewed. The patient was evaluated in room C11. A complete history and physical examination was performed. 1431: Ordered Cleocin 600mg/54ml DSW IV, Dexamethasone Sodium Phosphate 10mg/ syringe 2.5 ml @ 1 mls/min IV, and Toradol Inj 30mg IV 1435: Ordered Sodium Chloride 1000 ml @ 999 mls/hr. 1525: Ordered Hydrocodone Bit/Homatropine Methylb 5ml PO and Acetaminophen 1000mg PO. 1558: Ordered Acetaminophen 100 ml @ 400 mls/hr protocol IV, and Zofran Inj 4mg IV 1604: Ordered Vancomycin HCL 1 gm IV, and Cefepime HCL 2000mg/Dextrose 122 ml @ 200 mls/hr IV. 1610: I discussed the patient's case with Dr. Hummel - [facility]. 1642: I contacted patient transfer center 1654: I discussed the patient's case with Dr. Jorge TORRES. He will evaluate the patient for further care and treatment. The patient will be transferred to [facility]. Medical Decision Differential diagnosis: Etiologies such as viral syndrome, tonsillitis, streptococcal pharyngitis, mononucleosis, peritonsillar abscess, retropharyngeal abscess, otitis, pneumonia , influenza, as well as others were entertained. This is a 47-year-old female who presents emergency department complaining of inability to swallow as well as neck stiffness. Based on these findings patient was sent for a CAT scan of the neck. In addition the patient was also given Toradol, Decadron, clindamycin. Repeat examination revealed that the patient still was unable to swallow. For this reason she was again given IV Tylenol as well as Hycodan. The patient's CAT scan was concerning for a very large retropharyngeal abscess and for this reason I did discuss the case with ear nose throat. We both felt that the patient is at risk for mediastinitis and therefore felt transferred to a tertiary care center's was prudent. For this reason I did discuss this with the patient. The patient and asked to be transferred to [facility]. I then discussed the case with the emergency department and [facility] who readily accepted the patient. The patient was transferred via ambulance. Medication Reconcilliation Current Medication List: was personally reviewed by me Blood Pressure Screening Patient's blood pressure: Elevated blood pressure Referred to Hospitalist Consults Time Called: 1608 Consulting Physician: Dr. Hummel - Provider [facility]. Returned Call: 1610 I discussed the patient's case with Dr. Hummel - Provider [facility]. Additional Consults: Time Called: 1650 Consulted Physician: Dr. Jorge TORRES Returned Call: 1654 Additional Comments: I discussed the patient's case with Dr. Jorge TORRES. He will evaluate the patient for further care and treatment. The patient will be transferred to [facility]. Impression Primary Impression: Retropharyngeal abscess Critical Care I have personally spent greater than 90 minutes of critical care time in the direct management of this patient. This includes bedside care, interpretation of diagnostic studies, and testing, discussion with consultants, patient, and family members, and other required patient management activities. This 90 minutes is in excess of all separately billable procedures. Scribe Attestation The scribe's documentation has been prepared under my direction and personally reviewed by me in its entirety. I confirm that the note above accurately reflects all work, treatment, procedures, and medical decision making performed by me. Departure Information Dispostion Transfer Acute Care Facility ([facility] ED) Referrals Nhung Spence MD (PCP) Patient Instructions [facility]
[2017-09-13] MEDS ORDERED: OPTIRAY 320 IV PRN (14:45)
--- NOTE | 2017-09-13 14:54 | DIAGNOSTIC IMAGING REPORT ---
CHEST ONE VIEW PORTABLE CLINICAL HISTORY: Pt c/o neck pain dyspnea COMPARISON STUDY: 06/03/2015 FINDINGS: The bones soft tissues and hemidiaphragms are normal. The cardiomediastinal silhouette is normal. The lungs are clear. The pulmonary vasculature is normal. IMPRESSION: Negative chest. The above report was generated using voice recognition software. It may contain grammatical, syntax or spelling errors. Electronically signed by: Willis Burton M.D. 09/13/2017 2:53 PM Dictated Date/Time: 09/13/2017 2:53 PM
[2017-09-13 15:15] LABS: BASO % 0.1 %; BASO ABS # 0.01 K/uL (0-0.2); EOS % 0.9 %; EOS ABS # 0.11 K/uL (0-0.5); HEMATOCRIT 43.7 % (37-47); HEMOGLOBIN 14.7 g/dL (12.0-16.0); IG# 0.05 K/uL (0.00-0.02); LYMPH % 12.9 %; LYMPH ABS # 1.56 K/uL (1.2-3.4); MEAN CELL VOLUME 84.7 fL (80-100); MEAN CORPUSCULAR HEMOGLOBIN 28.5 pg (25-34); MEAN CORPUSCULAR HGB CONC 33.6 g/dl (32-36); MEAN PLATELET VOLUME 11.2 fL (7.4-10.4); MONO % 7.9 %; MONO ABS # 0.95 K/uL (0.11-0.59); NEUT % 77.8 %; NEUT ABS # 9.39 K/uL (1.4-6.5); PLATELET COUNT 219 K/uL (130-400); RED CELL DISTRIBUTION WIDTH CV 13.1 % (11.5-14.5); RED CELL DISTRIBUTION WIDTH SD 40.4 fL (36.4-46.3); WHITE BLOOD COUNT 12.07 K/uL (4.8-10.8)
[2017-09-13] MEDS ORDERED: HYDROCODONE/HOMATROPINE SYRUP 5MG/1.5MG 5ML UDP PO STA (15:25)
[2017-09-13] MEDS ORDERED: ACETAMINOPHEN 500 MG TAB PO STA (15:25)
[2017-09-13 15:29] LABS: INFLUENZA B ANTIGEN Neg for Influ B (NEG)
[2017-09-13 15:32] LABS: ALBUMIN 3.8 gm/dl (3.4-5.0); CALCIUM 9.1 mg/dl (8.5-10.1); CREATININE 0.8 mg/dl (0.60-1.20); POTASSIUM 3.7 mmol/L (3.5-5.1)
[2017-09-13] MEDS ORDERED: ONDANSETRON INJ 2 MG/ML 2 ML VIAL IV STA (15:58)
[2017-09-13] MEDS ORDERED: ACETAMINOPHEN IV 100 ML IV STA (15:58)
[2017-09-13] MEDS ORDERED: VANCOMYCIN 1GM/270ML NSS IV STA (16:04)
[2017-09-13] MEDS ORDERED: CEFEPIME IV 2,000 MG in DEXTROSE 5% 100ML 100 ML IV STA (16:04)
--- NOTE | 2017-09-13 16:05 | DIAGNOSTIC IMAGING REPORT ---
SOFT TISSUE NECK WITH CLINICAL HISTORY: Pt c/o inability to swallow dysphagia TECHNIQUE: Transaxial acquisition with multi axial reformatted images COMPARISON STUDY: None FINDINGS: Findings consistent with a considerable soft tissue edematous change medially anterior to the vertebral column extending from C1 through C7. Density characteristics inconclusive but do suggest edematous tissue versus the possibility of a potential collection. There is no evidence for air containment. Maximum length is approximately 9 cm. Maximum transaxial dimensions are approximately 3 x 2 cm. This displaces the airway in a somewhat anterior fashion. There is no significant narrowing, however of the airway itself. There is no significant peripheral enhancement. There is no bony erosive process. The glottic and subglottic regions are unremarkable. The epiglottis is normal. Several reactive cervical nodes in the cervical chains bilaterally are present measuring up to 1.7 cm. IMPRESSION: 1. Findings suggesting a retropharyngeal collection and/or edematous tissue with measurements of 9 x 3 x 2 cm. 2. Density characteristics are indeterminate with this suggestive of either complex fluid/phlegmon, versus a slightly hyperdense abscess. 3. A mass is not entirely excluded although this is considered less likely. 4. The airway is displaced anteriorly although there is no evidence for airway compromise at this time. 5. Mild bilateral cervical adenopathy, possibly reactive. The above report was generated using voice recognition software. It may contain grammatical, syntax or spelling errors. Electronically signed by: Willis Burton M.D. 09/13/2017 4:03 PM Dictated Date/Time: 09/13/2017 3:52 PM
[2017-09-13 21:12] VITALS: BP 165/79; PULSE 95; TEMP 37.4; O2SAT 96
== END 2017-09-13 21:13 | disposition short-term general hospital (02) ==
LOC: C.EDB 13:34 → C.EDC 21:13
DX: J39.0 Retropharyngeal and parapharyngeal abscess (principal); M54.2 Cervicalgia; Z87.891 Personal history of nicotine dependence; Z85.3 Personal history of malignant neoplasm of breast

== ENCOUNTER → 2018-02-26 | Outpatient (CLI) | payer BC ==
[~2018-02-26] VITALS: Ht 174 cm; Wt 128.3 kg
[2018-02-26 15:14] VITALS: BP 154/96; PULSE 96; Ht 174 cm; Wt 128.3 kg
== END | disposition home or self-care (01) ==
LOC: C.NEUR 14:32
PROVIDERS: ATTEND Internal Medicine Pulmonary Disease
DX: G47.33 Obstructive sleep apnea (adult) (pediatric) (principal); E66.01 Morbid (severe) obesity due to excess calories; R53.83 Other fatigue

== ENCOUNTER → 2018-03-10 | Outpatient (CLI) | payer BC ==
--- NOTE | 2018-03-17 13:30 | POLYSOMNOGRAPH REPORT ---
CLINICAL DATA: A 48-year-old female with previous history of mild sleep apnea who has gained a significant amount of weight (50#)and has progressive symptoms, referred for reevaluation of obstructive sleep apnea. She is referred by Dr. Spence and Dr. Anna Vaughn. On the evening of 03/10/2018, a home sleep apnea test was performed using Edward type 3 monitor. Her BMI is elevated at 43. RECORDING RESULTS: Total recording time was 9.6 hours. Patient monitoring time and estimated sleep time was 7.6 hours. RESPIRATORY DATA: Very severe sleep apnea was documented. The NELSON was 58.6. There were 166 obstructive, 2 mixed, and 5 central apneic episodes. There were 275 hypopneic episodes. Longest respiratory event was 51 seconds. OXIMETRY DATA: Severe hypoxemia was seen. Oxygen veronica was 70%. Mean saturation was 91%. Time below 89% was 94 minutes. HEART RATE DATA: Heart rates ranged from 70 to 85 beats per minute. SNORING DATA: Snoring was recorded throughout the night. IMPRESSION: Very severe sleep apnea/hypopnea with severe nocturnal hypoxemia. RECOMMENDATIONS: The patient may benefit from a repeat sleep study with CPAP. MTDD
== END | disposition home or self-care (01) ==
LOC: C.NEUR 08:22
PROVIDERS: ATTEND Internal Medicine Pulmonary Disease
DX: G47.33 Obstructive sleep apnea (adult) (pediatric) (principal); R09.02 Hypoxemia; R53.83 Other fatigue

== ENCOUNTER 2024-10-05 16:08 | Observation (INO) ==
[2024-10-05 17:05] LABS: Basophils # (auto) 0.04 K/uL (0.00-0.20); Basophils % (auto) 0.3 %; Eosinophils # (auto) 0.18 K/uL (0.00-0.50); Eosinophils % (auto) 1.3 %; Hematocrit (blood only) 46.3 % (37.0-47.0); Hemoglobin 15.2 g/dl (12.0-16.0); Immature Granulocytes # (auto) 0.13 K/uL (0.01-0.20); Immature Granulocytes % (auto) 0.9 %; Lymphocytes # (auto) 1.69 K/uL (1.20-3.40); Lymphocytes % (auto) 12.3 %; Mean Corpuscular Hemoglobin 27.3 pg (25.0-34.0); Mean Corpuscular Hgb Conc 32.8 g/dL (32.0-36.0); Mean Corpuscular Volume 83.3 fL (80.0-100.0); Mean Platelet Volume 11.1 fL (9.4-12.4); Monocytes # (auto) 1.15 K/uL (0.11-0.59); Monocytes % (auto) 8.4 %; Neutrophils # (auto) 10.54 K/uL (1.40-6.50); Neutrophils % (auto) 76.8 %; Platelet Count 241 K/uL (130-400); RDW Coefficient of Variation 12.9 % (11.5-14.5); RDW Standard Deviation 38.8 fL (36.4-46.3); Red Blood Count 5.56 M/uL (4.20-5.40); White Blood Count 13.73 K/ul (4.8-10.8)
[2024-10-05 17:21] LABS: Albumin Globulin Ratio 1.4 (0.9-2); BUN Creatinine Ratio 21.9 (10-20); Bilirubin,Total 0.4 mg/dl (0.2-1.0); Calcium 10.4 mg/dl (8.6-10.3); Globulin 3.5 gm/dl (2.5-4.0); Total Protein 8.5 gm/dl (6.0-8.3)
[2024-10-05 17:26] LABS: Troponin I High Sensitivity 2.9 pg/ml (0-14)
[2024-10-05 17:27] LABS: INR 0.9 (0.9-1.1); Partial Thromboplastin Time 28 Seconds (21-31); Prothrombin Time 10.2 Seconds (9.0-12.0)
--- NOTE | 2024-10-05 17:36 | XRay Report ---
Clinical History: Chest pain Technique: A frontal view of the chest was obtained Comparison is made to the prior examination dated 02/16/2024 Findings: There are no confluent pulmonary infiltrates. The heart size is within normal limits. No pleural effusion or pneumothorax is seen. There is no definite pulmonary nodule. No fracture is noted. No foreign body is seen Impression: No active disease Electronically signed by Prosper Ashford 10-05-2024 5:36 PM
[2024-10-05 17:39] LABS: Influenza A virus by PCR Negative (Neg); Influenza B virus by PCR Negative (Neg); RSV by PCR Negative (Neg); SARS CoV2 RNA(COVID-19) Ceph NEGATIVE (Negative)
[2024-10-05] MEDS: ASPIRIN 81 MG CHEW PO STA (18:17)
[2024-10-05 19:44] LABS: Magnesium 1.9 mg/dl (1.7-2.4)
--- NOTE | 2024-10-05 19:45 | History & Physical Report ---
Date of Service October 05, 2024 Assessment & Plan (1) Sinus tachycardia: Plan 54-year-old female PMHx PAF on Eliquis, sinus tachycardia, prediabetes, HTN, dyslipidemia, JESSICA, GERD, depression/anxiety, asthma, breast CA s/p mastectomy and chemo (2004), and psoriatic arthritis presenting for chest pain, palpitations, and tachycardia. ED evaluation reveals leukocytosis 13.73, normal PT/INR, D-dimer 340, CMP grossly WNL with exception BUN/Cr ratio 21.9 and glucose 103, Ca 10.4, protein 8.5, initial troponin 2.9 and repeat 2.7, mg 1.9, tsh pending; CXR WNL; negative for viral illness; EKG revealed sinus tachycardia at a rate of 108 bpm and no additional changes. #Tachycardia/chest pain/palpitations Chest pain starting at 0645 the day of arrival and lasting around 8 hours in duration, with radiation to back between the shoulder blades; Associated symptoms of palpitations and feeling as though heart was racing. Pt does have a history of sinus tachycardia and PAF (on eliquis) in which she has seen cardiology for, most recently 06/2024. Pt home regimen for cardio conditions in cludes Diltiazem and Propafenone, (bumetanide prn). With history of sinus tachycardia and palpitations which previously required admission at [facility]. Suspect large component of symptoms secondary to prior diagnoses vs costochondritis vs ? VTE (less likely given on Eliquis and WNL d- dimer) as compared to ACS. - EKG on arrival was ST @ 108 bpm; telemetry demonstrates sinus tach with rate 90s-100s; Troponin 2.9, repeat 2.7 - CBC leukocytosis 13k, CMP elevated bun/cr ration, Mg 1.9, TSH pending - unclear source of leukocytosis, no infectious symptoms, deferred abx at admission - CXR WNL; Pending echo - Lipid panel 12/2023 total 211, LDL 127, HDL 49, TG 176; utilizes red yeast rice but no statin appears to have been added - unclear why no statin, appears to have been considered in PCP note (01/21/2024) - Acetaminophen prn for pain/? costochondritis (allergy to naproxen so preferred to avoid NSAIDs at admission), heating pad prn - Cardiology consulted- appreciate input + recs #HTN- Telmisartan #Depression/Anxiety- Lorazepam prn #Asthma- Montelukast, albuterol neb/inhaler #GERD- Omeprazole Dispo: Admit, med/tele VTE Prophylaxis: Encourage ambulation - add chemical prophylaxis if prolonged stay This document was dictated utilizing CloudSplit. Please excuse any grammatical errors that may be secondary to use of this software. Admission and Anticipated Discharge Date Admission Date: 10/05/2024 History of Present Illness Chief Complaint: Chest pain, tachycardia Primary Care Provider: Azeb Lisa DO 54-year-old female PMHx PAF on eliquis, sinus tachycardia, prediabetes, HTN, dyslipidemia, JESSICA, GERD, depression/anxiety, asthma, breast CA s/p mastectomy and chemo (2004), and psoriatic arthritis presenting for chest pain, palpitations, and tachycardia. States that she woke up around 0645 the day of arrival secondary to chest pain in her central chest. Initially thought it was secondary to her psoriatic arthritis but states that by 0700, she felt her heart rate change and feel fast and irregular. Patient states that she does have a history of Afib and is able to tell when she flips in and out of Afib because she experiences palpitations, so she used her at home EKG-type device which showed that her HR was in the 100s. Patient went to work that day and noted that the pain was in her chest but also radiating to her back between her shoulder blades. Around 1400, patient states that she was leaning forward to get something off of the ground and started to feel very dizzy and started seeing s tars. She denies any LOC and recovered quickly after standing back up. At that time, patient notes that she began to recognize that deep breaths causing her more chest pain and she started to feel some SOB because she could not comfortably take a deep breath. Pt has no history of VTE and takes Eliquis as prescribed. Otherwise denying abdominal pain, N/V/D/C, diaphoresis, LUTS, URI symptoms, F/C, numbness/tingling, or LOC. Pt states that family members in her house this past week did test positive for the flu but she did not. Additionally, patient does complain of R toe pain after an injury to her foot ~ 2 days ago where she hit it off a tote that had metal components to it. States that she has a hard time moving her 2nd + 3rd toes and that it is very ecchymotic. ED evaluation reveals leukocytosis 13.73, normal PT/INR, D-dimer pending, CMP grossly WNL with exception BUN/Cr ratio 21.9 and glucose 103, Ca 10.4, protein 8.5, initial troponin 2.9 pending repeat, mg pending, tsh pending; CXR WNL; negative for viral illness; EKG revealed sinus tachycardia at a rate of 108 bpm and no additional changes. Please see Dr. Mac's attestation for changes/additions to the treatment plan. Allergies Allergy/AdvReac Type Severity Reaction Status Date / Time adhesive Allergy Unknown RED;RAW;TORN Verified 09/12/24 17:24 SKIN lobster Allergy Unknown per Verified 09/12/24 17:24 allergy testing : minor "a 2" on scale from 1-5 per pt. nut - unspecified Allergy Unknown brazil nut Verified 09/12/24 17:24 ? /dx per allergy testing: minor rxn. naproxen [From Aleve] AdvReac Unknown Vomiting Verified 09/12/24 17:24 Home Medications Medication Instructions Recorded Confirmed Type acetaminophen 500 mg tablet 1,000 mg (2 x 500 mg) PO Q6H PRN 02/11/19 10/05/24 Rx fever or pain #180 tabs vitamin E succinate 268 mg (400 150 units PO QAM 03/28/21 10/05/24 History unit) tablet albuterol sulfate 1.25 mg/3 mL 2.5 mg (6 mL) inhalation Q8H PRN 01/03/22 10/05/24 Rx solution for nebulization shortness of breath or wheezing #15 mL cholecalciferol (vitamin D3) 125 125 mcg PO DAILY 10/14/22 10/05/24 History mcg (5,000 unit) capsule vitamin K2 90 mcg capsule 90 mcg PO DAILY 10/14/22 10/05/24 History saw palmetto 500 mg capsule 500 mg PO DAILY 07/08/23 10/05/24 History albuterol sulfate 90 mcg/actuation 2 puff inhalation QID PRN 09/22/23 10/05/24 Rx aerosol inhaler shortness of breath or wheezing #6.7 grams red yeast rice 600 mg capsule 600 mg PO DAILY 01/12/24 10/05/24 History propafenone 325 mg 325 mg PO BID 05/03/24 10/05/24 History capsule,extended release 12 hr clobetasol 0.05 % scalp solution 1 applic topical BID 2 weeks #150 05/10/24 10/05/24 Rx mL montelukast 10 mg tablet 10 mg PO HS #90 tabs 06/13/24 10/05/24 Rx omeprazole 20 mg capsule,delayed 20 mg PO QAM #90 caps 06/13/24 10/05/24 Rx release bumetanide 1 mg tablet 1 mg PO UD PRN EDEMA OR WEIGHT GAIN 07/15/24 09/12/24 History diltiazem HCl 180 mg capsule,24 180 mg PO QAM 07/15/24 10/05/24 History hr,extended release fluocinolone 0.01 % topical body 1 applic topical UD PRN itching 07/15/24 10/05/24 History oil loperamide 2 mg tablet 2 mg PO UD PRN loose stool 07/15/24 10/05/24 History scopolamine base 1 mg over 3 days 1 patch transdermal Q3D PRN nausea 07/15/24 10/05/24 History transdermal patch and vomiting/sea sick turmeric 125 mg-carolyn root 6 1 tab PO DAILY 07/15/24 10/05/24 History mg-black pepper 50 mcg chewable tablet telmisartan 20 mg tablet 20 mg PO QAM #90 tabs 08/18/24 10/05/24 Rx ixekizumab 80 mg/mL subcutaneous 80 mg subcut .COMPLEX 09/12/24 10/05/24 History auto-injector (Kevintz Autoinjector) apixaban 5 mg tablet (Eliquis) 5 mg PO BID #180 tabs 09/14/24 10/05/24 Rx lorazepam 0.5 mg tablet 0.5 mg PO TID PRN anxiety #30 tabs 09/19/24 10/05/24 Rx Past Med/Surg History Problem List Chest pain (Acute) Hypertrophy of both inferior nasal turbinates Nasal septal deviation Encounter for monitoring anti-arrhythmic therapy Chronic sinusitis Lymphedema Edema, peripheral Chronic anticoagulation Sinus tachycardia Dyslipidemia Paroxysmal A-fib Afib eliquis Bilateral cataracts History of colon polyps Migraine (Chronic) Morbid obesity with BMI of 45.0-49.9, adult Hypertension Prediabetes Personal history of breast cancer (2004) 2004 Vitamin D deficiency Severe sleep apnea cpap Psoriasis Postmastectomy lymphedema (Acute) left Lumbar radiculopathy Hiatal hernia Goiter Exercise-induced asthma Eczema Dysmetabolic syndrome X Disc degeneration, lumbar Depression with anxiety Chronic diarrhea Allergic rhinitis Acid reflux disease Medical History Anxiety History of COVID-19 total of 3 x. 2022 x 2. 2021 x1. History of anesthesia reaction age 18: heard conversations while under (elective sx). In hx sometimes slower to wake up. With one surgery woke up during surgery and had to put me right back under (does not remember feeling pain , does remember she was intubated) - pt not sure what surgery this was with , approx 15-20 yr ago per pt. Knee problem both knees/acl and meniscus problems. Sinus tachycardia random occurences since chemotherapy. Paroxysmal A-fib dx 2022 - last known occurence approx February 2024 : if occurs again, will plan for ablation per pt. History of kidney stones Right cataract History of left breast cancer (2004) hx sx, chemo and radiation. Pre-diabetes denies Asthma excerice/allergy induced. Last flare seasonal approx May 2024 - used inhaler then but no use since. Psoriasis Sleep apnea cpap Goiter nothing known goiter to pt/ always told thyroid looks enlarged, multiple tests over years for and all testing was okay per pt. TMJ (temporomandibular joint disorder) cracking on occ/remote hx locking. Spinal stenosis of lumbar region no limitations Scoliosis no limitations Hx of migraines History of colon polyps Hiatal hernia Acid reflux Hyperlipidemia borderline elevated HTN (hypertension) Lymphedema chronic problem/left arm / compression sleeve and lymphedema pump. No change baseline. Chronic sinusitis no known active infections. "sinus issues" - no change in baseline. History of fracture of wrist (03/2024) hx cast/no sx intervention. mostly healed per pt. History of chemotherapy CHEMOTHERAPEUTICS -- breast cancer 2004 History of food allergy seafood and nut BPPV (benign paroxysmal positional vertigo) Surgical History History of endoscopy History of colonoscopy History of elective History of cataract surgery L eye History of biopsy LAPAROSCOPY(DIAGNOSTIC) GYNECOLOGIC WITH BIOPSY History of laparoscopic cholecystectomy Status post breast lumpectomy (2004) L breast/"partial mastectomy" History of appendectomy Family History Brother , @ AGE 49 Esophageal cancer Mother History of kidney cancer Breast cancer IBS (irritable bowel syndrome) Family history of reaction to anesthesia mom aspirated everytime was under anesthesia, had extreme nausea and difficulty wakening. Grandmother (Maternal) Myocardial infarction Grandmother (Paternal) Myocardial infarction Other Pulmonary fibrosis Denies family history of Ovarian cancer Prostate cancer Colorectal cancer Social History Smoking Status: Current some day smoker Tobacco Type: Cigarettes Age Started Using Tobacco: 50; packs per day: 0.5; Cigarettes Per Day: never more than 0.5ppd/that is current/advised npo.; Second Hand Exposure: No; Do You Dip or Chew Tobacco: No; Hx Alcohol Use: Yes Alcohol type: beer, wine and hard liquor Alcohol Intake Frequency: 2-4 x/Month Hx Substance Use: No Preferred Language: Greek Communication Ability: Effective Visual Impairment: No Limitations Hearing Ability: Normal Oncology Physician Assistant Required: No Beliefs That Will Affect Care: None marital status: Current Living Situation: Spouse and Family current occupational status: employed 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 Feels Safe at Home: Yes Childhood Exposure to Second-Hand Smoke: No Diet: regular caffeine: Yes (Coffee x 3 cups per day.) during the past year weight has: remained stable Dental Care, Regularly: Yes Physical Activity Frequency: Does not Exercise Seatbelt Use: always Sunscreen Use: Yes Assistive Devices: Brace/Splint/Immobilizer, Cane, CPAP and Other Review of Systems Review of Systems: All systems reviewed & are unremarkable except as noted in Subjective Physical Exam Physical Exam: General: No acute distress Skin: Warm and dry Head: Normocephalic, atraumatic Eyes: PERRL, conjunctivae clear, sclera non-icteric ENT: External ear and ear canal without swelling; nose atraumatic; good dentition, tongue normal appearance, pharynx normal Neck: Supple, no LAD Cardio: Tachycardic in the 100s, regular rhythm, no M/G/R, S1 and S2 normal; slight tenderness to palpation of chest wall, no skin changes Resp: Chest wall symmetric, normal respiratory effort; No respiratory distress, Lungs CTA in all lobes bilaterally, no wheezes, rales, or rhonchi Abdomen: Soft, symmetric, nontender; No masses or hepatosplenomegaly; Bowel sounds normoactive MSK: S/P L mastectomy; No deformities, full ROM throughout; pulses palpable and equal; no edema; top of R foot with slight ecchymotic area at second and third toe, no palpable deformity, patient with acceptable ROM of toes. Neuro: Awake, alert; Muscle strength 5/5 bilaterally in UE/LE; Sensation intact bilaterally; CN intact Psych: Appropriate mood and affect; good judgement and insight. Sister present in room at time of visit. Results & Data Results & Data Vital Signs (Past 12 Hours) Vital Signs Temp Pulse Pulse Resp BP BP Pulse Ox 10/05/24 19:00 103 H 12 116/94 97 10/05/24 17:17 108 H 10/05/24 17:14 99 10/05/24 17:14 106 H 20 137/88 98 10/05/24 17:14 10/05/24 16:23 37.1 C 108 H 18 158/83 H 97 O2 Del Method 10/05/24 19:00 Room Air 10/05/24 17:17 10/05/24 17:14 Room Air 10/05/24 17:14 Room Air 10/05/24 17:14 Room Air 10/05/24 16:23 Room Air Laboratory Results 10/05/24 16:41 WBC 13.73 H RBC 5.56 H Hgb 15.2 Hct 46.3 MCV 83.3 MCH 27.3 MCHC 32.8 RDW Std Deviation 38.8 RDW Coeff of Brian 12.9 Plt Count 241 MPV 11.1 Immature Gran % (Auto) 0.9 Neut % (Auto) 76.8 Lymph % (Auto) 12.3 Power % (Auto) 8.4 Eos % (Auto) 1.3 Baso % (Auto) 0.3 Neut # (Auto) 10.54 H Lymph # (Auto) 1.69 Power # (Auto) 1.15 H Eos # (Auto) 0.18 Baso # (Auto) 0.04 Immature Gran # (Auto) 0.13 PT 10.2 INR 0.9 APTT 28 PTT Ratio 1.0 Sodium 139 Potassium 4.0 Chloride 101 Carbon Dioxide 31 Anion Gap 7 BUN 14 Creatinine 0.64 Est Cr Clr Drug Dosing 147.0 eGFR 105.61 BUN/Creatinine Ratio 21.9 H Glucose 103 H Calcium 10.4 H Magnesium 1.9 Total Bilirubin 0.4 AST 18 ALT 27 Alkaline Phosphatase 57 Troponin I High Sens 2.9 Total Protein 8.5 H Albumin 5.0 Globulin 3.5 Albumin/Globulin Ratio 1.4 SARS-CoV-2 (PCR) NEGATIVE Influenza Type A (PCR) Negative Influenza Type B (PCR) Negative RSV (RT-PCR) Negative Diagnostic Findings Chest X-Ray 10/05/24 16:30 Clinical History: Chest pain Technique: A frontal view of the chest was obtained Comparison is made to the prior examination dated 02/16/2024 Findings: There are no confluent pulmonary infiltrates. The heart size is within normal limits. No pleural effusion or pneumothorax is seen. There is no definite pulmonary nodule. No fracture is noted. No foreign body is seen Impression: No active disease Electronically signed by Prosper Ashford 10-05-2024 5:36 PM Medications Administered ASA 324 mg po ECG Additional Comments: Sinus tachycardia 108 bpm, OK 144, QRS 84, QT/QTc 350/469, PRT 33/70/50 Code Status & VTE Plan Code Status Full VTE Prophylaxis Plan VTE Prophylaxis will be ordered: Yes Supervising Physician Co-Signing Physician Notes Patient seen and examined, chart reviewed, case discussed with TALON Sumner and I agree with the assessment and plan as above. In brief, patient is a 54yo female with history of PAF on Eliquis, ST, HTN/HLP/Pre-DM presenting with chest pain and tachycardia that woke her from sleep. Patient follows with Cardiology and is compliant with her medications - Diltiazem and Propafenone. On exam she is afebrile, tachycardic - sinus with frequent PACs and occasional PVC noted on monitor Skin - no rash HEENT - MMM, Neck supple Heart - +S1/S2, tachycardic with frequent ectopy Lungs - diminished breath sounds right base, scattered end-expiratory wheezing Abd - soft, NT/ND Ext - warm, well perfused Labs and images reviewed Electroltyes are acceptable, Ca slightly high at 10.4 Troponin is unremarkable Ddimer WNL TSH WNL Assessment/Plan - sinus tachycardia, frequent PACs, PVCs Source unclear -Gentle IVF -Monitor closely for possible infection - patient with elevated WBC count, is on biologic for psoriatic arthritis -Trend troponin -Check echo -Cardiology consultation -Remainder as above PG Care Time/CCT Total # of Minutes Spent Total Time Spent with Patient: Total time spent is greater than 50% in coordination of care (as documented) at patient's floor/unit and/or counseling patient: Coding Level of Care Code 79765 INT INP/OBS CARE 3/75MIN Diagnoses Sinus tachycardia R00.0
[2024-10-05 19:47] LABS: D Dimer 340 ug/L FEU (0-500)
[2024-10-05 20:02] LABS: Thyroid Stimulating Hormone 1.361 uIu/ml (0.300-4.500)
[2024-10-05] MEDS ORDERED: POLYETHYLENE (MIRALAX) 17 GM PACK PO PRN (20:08)
--- NOTE | 2024-10-05 20:33 | XRay Report ---
EXAM: Radiographs of the Right Foot Complete 3 Views INDICATION: Trauma 1 week ago TECHNIQUE: Frontal, lateral and oblique views of the right foot. Images obtained at 7:36 PM COMPARISON: No relevant prior studies available. FINDINGS: Bones/joints: There is an acute, nondisplaced there is a intra-articular fracture of the distal aspect of the fifth proximal phalanx. Small plantar calcaneal spur. No erosion. Joint spaces are maintained. Soft tissues: No abnormality noted. No radiopaque foreign body noted. IMPRESSION: 1. There is an acute, nondisplaced there is a intra-articular fracture of the distal aspect of the fifth proximal phalanx. 2. Very small plantar calcaneal spur noted. ACT 112: N/A Electronically signed by Azra Henson 10-05-2024 8:32 PM
[2024-10-05] MEDS ORDERED: ALBUTEROL HFA 8 GM INHALER INH PRN (20:40)
[2024-10-05] MEDS ORDERED: ALBUTEROL 0.083% NEBU SOLN 3 ML VIAL INH PRN (21:04)
--- NOTE | 2024-10-05 21:47 | Emergency Department Note ---
History of Present Illness General Chief Complaint: Tachycardia Stated Complaint: TACHYCARDIA,TROUBLE DEEP BREATHING,HX AFIB Time Seen by Provider: 10/05/24 17:01 History of Present Illness Provider Complaint: chest pain Onset (ago): day(s) 1 Duration: intermittent Onset: during rest Pain Location: substernal Severity: moderate Maximum Pain Intensity: 4 Quality: + sharp Relieved By: + nothing Exacerbated By: + inspiration Context: no recent illness, no recent surgery, no recent immobilization, no recent travel, no trauma/injury or no history of DVT/PE Associated symptoms: + dyspnea and + palpitations; no fever, no cough or no leg swelling Home Medications Medication Instructions Recorded Confirmed Type acetaminophen 500 mg tablet 1,000 mg (2 x 500 mg) PO Q6H PRN 02/11/19 10/05/24 Rx fever or pain #180 tabs vitamin E succinate 268 mg (400 150 units PO QAM 03/28/21 10/05/24 History unit) tablet albuterol sulfate 1.25 mg/3 mL 2.5 mg (6 mL) inhalation Q8H PRN 01/03/22 10/05/24 Rx solution for nebulization shortness of breath or wheezing #15 mL cholecalciferol (vitamin D3) 125 125 mcg PO DAILY 10/14/22 10/05/24 History mcg (5,000 unit) capsule vitamin K2 90 mcg capsule 90 mcg PO DAILY 10/14/22 10/05/24 History saw palmetto 500 mg capsule 500 mg PO DAILY 07/08/23 10/05/24 History albuterol sulfate 90 mcg/actuation 2 puff inhalation QID PRN 09/22/23 10/05/24 Rx aerosol inhaler shortness of breath or wheezing #6.7 grams red yeast rice 600 mg capsule 600 mg PO DAILY 01/12/24 10/05/24 History propafenone 325 mg 325 mg PO BID 05/03/24 10/05/24 History capsule,extended release 12 hr clobetasol 0.05 % scalp solution 1 applic topical BID 2 weeks #150 05/10/24 10/05/24 Rx mL montelukast 10 mg tablet 10 mg PO HS #90 tabs 06/13/24 10/05/24 Rx omeprazole 20 mg capsule,delayed 20 mg PO QAM #90 caps 06/13/24 10/05/24 Rx release bumetanide 1 mg tablet 1 mg PO UD PRN EDEMA OR WEIGHT GAIN 07/15/24 09/12/24 History diltiazem HCl 180 mg capsule,24 180 mg PO QAM 07/15/24 10/05/24 History hr,extended release fluocinolone 0.01 % topical body 1 applic topical UD PRN itching 07/15/24 10/05/24 History oil loperamide 2 mg tablet 2 mg PO UD PRN loose stool 07/15/24 10/05/24 History scopolamine base 1 mg over 3 days 1 patch transdermal Q3D PRN nausea 07/15/24 10/05/24 History transdermal patch and vomiting/sea sick turmeric 125 mg-carolyn root 6 1 tab PO DAILY 07/15/24 10/05/24 History mg-black pepper 50 mcg chewable tablet telmisartan 20 mg tablet 20 mg PO QAM #90 tabs 08/18/24 10/05/24 Rx ixekizumab 80 mg/mL subcutaneous 80 mg subcut .COMPLEX 09/12/24 10/05/24 History auto-injector (Taltz Autoinjector) apixaban 5 mg tablet (Eliquis) 5 mg PO BID #180 tabs 09/14/24 10/05/24 Rx lorazepam 0.5 mg tablet 0.5 mg PO TID PRN anxiety #30 tabs 09/19/24 10/05/24 Rx Allergies Allergy/AdvReac Type Severity Reaction Status Date / Time adhesive Allergy Unknown RED;RAW;TORN Verified 09/12/24 17:24 SKIN lobster Allergy Unknown per Verified 09/12/24 17:24 allergy testing : minor "a 2" on scale from 1-5 per pt. nut - unspecified Allergy Unknown brazil nut Verified 09/12/24 17:24 ? /dx per allergy testing: minor rxn. naproxen [From Aleve] AdvReac Unknown Vomiting Verified 09/12/24 17:24 Past Med/Surg History Problem List (Updated 10/05/24 @ 21:47 by Lincoln Leone MD) Chest pain (Acute) Hypertrophy of both inferior nasal turbinates Nasal septal deviation Encounter for monitoring anti-arrhythmic therapy Chronic sinusitis Lymphedema Edema, peripheral Chronic anticoagulation Sinus tachycardia Dyslipidemia Paroxysmal A-fib Afib eliquis Bilateral cataracts History of colon polyps Migraine (Chronic) Morbid obesity with BMI of 45.0-49.9, adult Hypertension Prediabetes Personal history of breast cancer (2004) 2004 Vitamin D deficiency Severe sleep apnea cpap Psoriasis Postmastectomy lymphedema (Acute) left Lumbar radiculopathy Hiatal hernia Goiter Exercise-induced asthma Eczema Dysmetabolic syndrome X Disc degeneration, lumbar Depression with anxiety Chronic diarrhea Allergic rhinitis Acid reflux disease Medical History Anxiety History of COVID-19 total of 3 x. 2022 x 2. 2021 x1. History of anesthesia reaction age 18: heard conversations while under (elective sx). In hx sometimes slower to wake up. With one surgery woke up during surgery and had to put me right back under (does not remember feeling pain , does remember she was intubated) - pt not sure what surgery this was with , approx 15-20 yr ago per pt. Knee problem both knees/acl and meniscus problems. Sinus tachycardia random occurences since chemotherapy. Paroxysmal A-fib dx 2022 - last known occurence approx February 2024 : if occurs again, will plan for ablation per pt. History of kidney stones Right cataract History of left breast cancer (2004) hx sx, chemo and radiation. Pre-diabetes denies Asthma excerice/allergy induced. Last flare seasonal approx May 2024 - used inhaler then but no use since. Psoriasis Sleep apnea cpap Goiter nothing known goiter to pt/ always told thyroid looks enlarged, multiple tests over years for and all testing was okay per pt. TMJ (temporomandibular joint disorder) cracking on occ/remote hx locking. Spinal stenosis of lumbar region no limitations Scoliosis no limitations Hx of migraines History of colon polyps Hiatal hernia Acid reflux Hyperlipidemia borderline elevated HTN (hypertension) Lymphedema chronic problem/left arm / compression sleeve and lymphedema pump. No change baseline. Chronic sinusitis no known active infections. "sinus issues" - no change in baseline. History of fracture of wrist (03/2024) hx cast/no sx intervention. mostly healed per pt. History of chemotherapy CHEMOTHERAPEUTICS -- breast cancer 2004 History of food allergy seafood and nut BPPV (benign paroxysmal positional vertigo) Surgical History History of endoscopy History of colonoscopy History of elective History of cataract surgery L eye History of biopsy LAPAROSCOPY(DIAGNOSTIC) GYNECOLOGIC WITH BIOPSY History of laparoscopic cholecystectomy Status post breast lumpectomy (2004) L breast/"partial mastectomy" History of appendectomy Family History Brother , @ AGE 49 Esophageal cancer Mother History of kidney cancer Breast cancer IBS (irritable bowel syndrome) Family history of reaction to anesthesia mom aspirated everytime was under anesthesia, had extreme nausea and difficulty wakening. Grandmother (Maternal) Myocardial infarction Grandmother (Paternal) Myocardial infarction Other Pulmonary fibrosis Denies family history of Ovarian cancer Prostate cancer Colorectal cancer Social History Smoking Status: Current some day smoker Tobacco Type: Cigarettes Age Started Using Tobacco: 50; packs per day: 0.5; Cigarettes Per Day: never more than 0.5ppd/that is current/advised npo.; Second Hand Exposure: No; Do You Dip or Chew Tobacco: No; Hx Alcohol Use: Yes Alcohol type: beer, wine and hard liquor Alcohol Intake Frequency: 2-4 x/Month Hx Substance Use: No Preferred Language: Yoruba Communication Ability: Effective Visual Impairment: No Limitations Hearing Ability: Normal Mail Courier Required: No Beliefs That Will Affect Care: None marital status: Current Living Situation: Spouse and Family current occupational status: employed 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 Feels Safe at Home: Yes Childhood Exposure to Second-Hand Smoke: No Diet: regular caffeine: Yes (Coffee x 3 cups per day.) during the past year weight has: remained stable Dental Care, Regularly: Yes Physical Activity Frequency: Does not Exercise Seatbelt Use: always Sunscreen Use: Yes Assistive Devices: Brace/Splint/Immobilizer, Cane, CPAP and Other Physical Exam Vital Signs Vital Signs - 24 hr 10/05/24 16:23 10/05/24 17:14 10/05/24 17:14 Temperature 37.1 C Temperature Source Temporal Artery Scan Pulse Rate 108 H Pulse Rate [Apical] 106 H Pulse Rhythm [Apical] Pulse Strength [Apical] Respiratory Rate 18 20 Respiratory Effort / Characteristics Non-Labored Respiratory Depth Normal Blood Pressure 158/83 H Blood Pressure [Right Arm] 137/88 Blood Pressure Mean 108 Blood Pressure Mean [Right Arm] 104 Blood Pressure Position [Right Arm] Sitting Pulse Oximetry 97 98 Oxygen Delivery Method Room Air Room Air Room Air Sepsis Recent Fever Within 48 Hours No Sepsis New/Unexplained Change in Mental Status N/A Sepsis Action Taken by Nursing No Action Required 10/05/24 17:14 10/05/24 17:17 10/05/24 19:00 Temperature Temperature Source Pulse Rate 108 H Pulse Rate [Apical] 103 H Pulse Rhythm [Apical] Regular Pulse Strength [Apical] Normal Respiratory Rate 12 Respiratory Effort / Characteristics Respiratory Depth Normal Blood Pressure Blood Pressure [Right Arm] 116/94 Blood Pressure Mean Blood Pressure Mean [Right Arm] 101 Blood Pressure Position [Right Arm] Lying Pulse Oximetry 99 97 Oxygen Delivery Method Room Air Room Air Sepsis Recent Fever Within 48 Hours Sepsis New/Unexplained Change in Mental Status Sepsis Action Taken by Nursing Physical Exam GENERAL: oriented to person, place, and time. appears well-developed and well- nourished. HENT: Exam performed. - Head: Normocephalic and atraumatic. EYES: Conjunctivae and EOM are normal. Right eye exhibits no discharge. Left eye exhibits no discharge. No scleral icterus. NECK: Normal range of motion. Neck supple. No JVD present. CV: Normal rate, regular rhythm, normal heart sounds and intact distal pulses. There is no peripheral edema. Palpable radial pulses bue. PULM/CHEST: Effort normal and breath sounds normal. No respiratory distress. No stridor. no wheezes. no rales. ABD: The abdomen is soft and obese. There is no tenderness. NEURO: Motor and sensation grossly intact. SKIN: Skin is warm and dry. He is not diaphoretic. PSYCH: normal mood and affect. Behavior is normal. Judgment and thought content normal. Course Course 170: The patient was evaluated in room B8. A complete history and physical exam was performed Cardiac monitoring: An order was placed for continuous cardiac monitoring. The monitor shows a rate of 100 with sinus rhythm interpreted by me 1815: Vital signs stable. Labs and imaging are unremarkable. Patient was offered inpatient observation versus outpatient follow-up with cardiology if delta troponin negative. Patient elected for inpatient observation. [facility]. Administered Medications Discontinued Medications Aspirin (Aspirin 81 Mg Chew) 324 mg PO NOW STA Stop: 10/05/24 18:14 Last Admin: 10/05/24 18:17 Dose: 324 mg Documented By: [facility] Medical Decision Making Laboratory Data Attestation: I reviewed the patient's lab results. 10/05/24 16:41 10/05/24 16:41 Labs: Lab Results 10/05/24 10/05/24 Range/Units 16:41 19:03 WBC 13.73 H (4.8-10.8) K/ul RBC 5.56 H (4.20-5.40) M/uL Hgb 15.2 (12.0-16.0) g/dl Hct 46.3 (37.0-47.0) % MCV 83.3 (80.0-100.0) fL MCH 27.3 (25.0-34.0) pg MCHC 32.8 (32.0-36.0) g/dL RDW Std Deviation 38.8 (36.4-46.3) fL RDW Coeff of Brian 12.9 (11.5-14.5) % Plt Count 241 (130-400) K/uL MPV 11.1 (9.4-12.4) fL Immature Gran % (Auto) 0.9 % Neut % (Auto) 76.8 % Lymph % (Auto) 12.3 % Deuel % (Auto) 8.4 % Eos % (Auto) 1.3 % Baso % (Auto) 0.3 % Neut # (Auto) 10.54 H (1.40-6.50) K/uL Lymph # (Auto) 1.69 (1.20-3.40) K/uL Deuel # (Auto) 1.15 H (0.11-0.59) K/uL Eos # (Auto) 0.18 (0.00-0.50) K/uL Baso # (Auto) 0.04 (0.00-0.20) K/uL Immature Gran # (Auto) 0.13 (0.01-0.20) K/uL PT 10.2 (9.0-12.0) Seconds INR 0.9 (0.9-1.1) APTT 28 (21-31) Seconds PTT Ratio 1.0 D-Dimer 340 (0-500) ug/L FEU Sodium 139 (136-145) mmol/L Potassium 4.0 (3.5-5.1) mmol/L Chloride 101 (98-107) mmol/L Carbon Dioxide 31 (21-32) mmol/L Anion Gap 7 (3-11) BUN 14 (6-23) mg/dl Creatinine 0.64 (0.6-1.2) mg/dl Est Cr Clr Drug Dosing 147.0 ml/min eGFR 105.61 BUN/Creatinine Ratio 21.9 H (10-20) Glucose 103 H (70-99(Fasting)) mg/dl Calcium 10.4 H (8.6-10.3) mg/dl Magnesium 1.9 (1.7-2.4) mg/dl Total Bilirubin 0.4 (0.2-1.0) mg/dl AST 18 (13-39) U/L ALT 27 (7-52) U/L Alkaline Phosphatase 57 (34-104) U/L Troponin I High Sens 2.9 2.7 (0-14) pg/ml Total Protein 8.5 H (6.0-8.3) gm/dl Albumin 5.0 (3.4-5.0) gm/dl Globulin 3.5 (2.5-4.0) gm/dl Albumin/Globulin Ratio 1.4 (0.9-2) TSH 1.361 (0.300-4.500) uIu/ml SARS-CoV-2 (PCR) NEGATIVE (Negative) Influenza Type A (PCR) Negative (Neg) Influenza Type B (PCR) Negative (Neg) RSV (RT-PCR) Negative (Neg) Imaging Data Chest x-ray: Attestation: I personally reviewed and interpreted this imaging study as follows: My impression: Chest x-ray negative. Airway clear. No pneumothorax. No consolidation. No cardiomegaly or cephalization.. No free air under the diaphragm. No fractures of the skeletal structures. ECG Data Attestation: I personally reviewed and interpreted this ECG as follows: Rate (beats per minute): 108 Rhythm: sinus tachycardia Findings: no ST depression, no ST elevation or no prolonged QT MDM Narrative 1701: The patient was evaluated in room B8. A complete history and physical exam was performed Cardiac monitoring: An order was placed for continuous cardiac monitoring. The monitor shows a rate of 100 with sinus rhythm interpreted by me 1815: Vital signs stable. Labs and imaging are unremarkable. Patient was offered inpatient observation versus outpatient follow-up with cardiology if delta troponin negative. Patient elected for inpatient observation. [facility]. Impression & Plan Chest pain Discharge Plan Visit Data Chief Complaint: Tachycardia Stated Complaint: TACHYCARDIA,TROUBLE DEEP BREATHING,HX AFIB ED Provider: Lincoln Leone Discharge Problem: Chest pain Patient Disposition: Admitted As Inpatient Discharge Instructions Interventions: ED Discharge Assessment Last Done: 10/05/24 20:08 Discharge Problem: Chest pain Qualifiers: Chest pain type: unspecified Qualified Code(s): R07.9 - Chest pain, unspecified
[2024-10-05] MEDS: ACETAMINOPHEN 325 MG TAB PO PRN (22:23)
[2024-10-05] MEDS: LACTATED RINGER'S 1,000 ML IV SCH (22:26)
[2024-10-05] MEDS: PROPAFENONE HCL 150 MG TABLET PO SCH (22:28)
[2024-10-05] MEDS: MONTELUKAST SODIUM 10 MG TABLET PO SCH (22:28)
[2024-10-05] MEDS: APIXABAN 5 MG TABLET PO SCH (22:28)
[2024-10-06 07:28] LABS: Hematocrit (blood only) 42.3 % (37.0-47.0); Hemoglobin 14.4 g/dl (12.0-16.0); Mean Corpuscular Hemoglobin 28.2 pg (25.0-34.0); Mean Corpuscular Volume 82.9 fL (80.0-100.0); Platelet Count 216 K/uL (130-400); RDW Standard Deviation 39.4 fL (36.4-46.3); White Blood Count 10.31 K/ul (4.8-10.8)
[2024-10-06] MEDS: dilTIAZem HCL 180 MG CAPCR PO SCH (07:48)
[2024-10-06 07:53] LABS: BUN Creatinine Ratio 19.6 (10-20); Calcium 9.5 mg/dl (8.6-10.3); Creatinine Clr Calc Pharmacy 168.1 ml/min; Potassium 3.8 mmol/L (3.5-5.1)
[2024-10-06] MEDS: PANTOprazole 40 MG TAB PO SCH (07:54)
[2024-10-06] MEDS: LOSARTAN POTASSIUM 25 MG TAB PO SCH (07:54)
[2024-10-06] MEDS: METOPROLOL TARTRATE 1 MG/ML VIAL IV STA (08:10)
--- NOTE | 2024-10-06 08:13 | Electrocardiogram Report ---
Test Reason : Blood Pressure : */* mmHG Vent. Rate : 108 BPM Atrial Rate : 108 BPM P-R Int : 144 ms QRS Dur : 84 ms QT Int : 350 ms P-R-T Axes : 33 70 50 degrees QTcB Int : 469 ms Sinus tachycardia Otherwise normal ECG When compared with ECG of 20-Mar-2024 19:36, No significant change was found Confirmed by Petar Ocampo ([id number]) on 10/06/2024 8:13:04 AM Referred By: REFERRED SELF Confirmed By: Petar Ocampo
--- NOTE | 2024-10-06 10:37 | XCELERA ---
[id number]
--- NOTE | 2024-10-06 12:08 | Hospitalist Progress Note ---
Date of Service October 06, 2024 Assessment & Plan (1) Atrial flutter, paroxysmal: (2) Costochondritis: (3) Subacute cough: Plan 54-year-old female PMHx PAF on Eliquis, sinus tachycardia, prediabetes, HTN, dyslipidemia, JESSICA, GERD, depression/anxiety, asthma, breast CA s/p mastectomy and chemo (2004), and psoriatic arthritis presenting for chest pain, palpitations, and tachycardia. Aflutter - in 150s this am, ordered 5 mg IV metoprolol moved to PCU. By midday is in sinus rhythm with few pac's. Hx PAF and She also has history of sinus tachycardia. -consulted cardiology, discussed with Dr. Ocampo - plan to increase propafenone, monitor tonight see if effectuve. Reviewed TTE was normal, normal CVP -continue po diltiazem and DOAC -has seen Dr. Wray EP at [facility] - follow up with him Chest pain - highly reproducible on palpation c/w costochondritis. Has had cough since Víctor following viral URI, had another URI last week Psoriatic arthritis will make her more prone to this -prednisone 20 mg po x 3-5 days -robitussin AC -coughing and pain may provoke afib/flutter episodes Psoriatic arthritis mildly immunosuppressed on Taltz, IL-17 inhibitor JESSICA on noc CPAP Morbid obesity BMI 45 HTN - stable on current meds - dilt, telmisartan Asthma - not in exac. Montelukast, albuterol neb/inhaler GERD - elevated HOB, declines PPI DVT ppx - apixaban Likely home in AM if fib/flutter controlled Admission and Anticipated Discharge Date Admission Date: October 05, 2024 Subjective chest pain unchanged, aggravated by deep breathing, palpation, coughing and when she is tachycardic. currently along L sternal border Physical Exam 2 Physical Exam: Last 24h vitals reviewed GEN: no acute distress, lying in bed HEENT: pupils equal, sclerae anicteric, moist MM RESP: normal WOB, CTAB CV: reg no mrg. TTP at costochondral joints along entire LSB. Some mid-upper tspine tenderness ABD: soft/nt/nd +BT : no boyer SKIN: warm and dry, no generalized rashes EXT: no edema, wwp, no inflammation knee/ankle/foot joints NEURO: AOx person, place, and situation. Face symmetric, speech normal, moves 4 ext spontaneously and equally Results & Data Results & Data Vital Signs (Past 12 Hours) Vital Signs Temp Pulse Pulse Resp BP Pulse Ox O2 Del Method 10/06/24 11:11 36.7 C 66 20 119/75 94 Room Air 10/06/24 08:23 96 H 10/06/24 08:10 144 H 10/06/24 07:51 36.5 C 92 H 18 102/71 92 Room Air 10/06/24 07:48 Room Air 10/06/24 06:45 94 H 10/06/24 02:50 86 18 106/68 96 Room Air, CPAP 10/06/24 02:28 12 Laboratory Results 10/06/24 07:01 10/06/24 07:01 Lab review - trops were negative, Cr normal at 0.5, leukocytosis normalized to 10K today PG Care Time/CCT Total # of Minutes Spent Total Time Spent with Patient: Total time spent is greater than 50% in coordination of care (as documented) at patient's floor/unit and/or counseling patient: Coding Level of Care Code 69992 SUB INP/OBS CARE 3/50MIN Diagnoses Atrial flutter, paroxysmal I48.92 Costochondritis M94.0 Subacute cough R05.2
[2024-10-06] MEDS: predniSONE 20 MG TAB PO SCH (12:39)
--- NOTE | 2024-10-06 13:44 | Cardiology Consultation ---
Date of Consultation October 06, 2024 Assessment & Plan (1) Atrial flutter, paroxysmal: (2) Sinus tachycardia: (3) Costochondritis: (4) Subacute cough: Plan 54-year-old woman with paroxysmal atrial flutter admitted with atypical chest pain most consistent with costochondritis secondary to a viral URI and underlying psoriatic arthritis. Based on atypical nature of her pain, unremarkable enzymes and ECG, no indication of acute coronary syndrome. She did have recurrence of atrial flutter for about 45 minutes this morning, but it appears that she is on a lower dose of propafenone that her home dosing. At home she takes propafenone extended release 325 mg twice daily (total dose 650 mg daily), in hospital she is on nonsustained release propafenone 150 mg every 8 hours (450 mg daily). Will increase her propafenone dose to 150 mg every 6 hours (600 mg daily), this will more closely approximate her home dosing. If she remains free of recurrent atrial flutter, she could be discharged on her usual dose of sustained-release propafenone 325 mg twice daily, however if she has any further atrial tachydysrhythmias she would need to have her home dose increased to sustained-release propafenone 4 and 25 mg twice daily Agree with reducing adrenergic stimuli by treating her respiratory symptoms/costochondritis with prednisone and antitussive. Recommend follow-up with Dr. Wray in 1 to 2 months, if she is doing well she likely could remain on medical management with antiarrhythmic, if she has recurrent atrial flutter she could be reconsidered for ablation therapy. Case discussed with Dr. Beach. History of Present Illness Reason for Consultation: Tachycardia, palpitations, CP Requesting Physician: Keke Martinez MD Attending Physician: Keke Martinez MD History of Present Illness 54-year-old woman with paroxysmal atrial fibrillation (apixaban/propafenone/diltiazem), remote breast cancer (Cytoxan/agent Rema 2004), asthma, obstructive sleep apnea, and psoriatic arthritis, who was adm itted 10/05/2024 with palpitations and chest discomfort. March 2024 she was evaluated by Dr. Wray (electrophysiology at [place]) and placed on propafenone. There was consideration of pulmonary venous ablation, however since she had been doing well medically she remained on conservative medical management. She has had recent viral URI type symptoms and a paroxysmal cough, and several family members recently tested positive for influenza. The morning of admission she awoke with central chest discomfort with a major pleuritic component (worse with deep breath), she noted associated tachypalpitations. Chest discomfort radiated to her back and arms. The afternoon of admission she noted a presyncopal episode after bending over and standing up, she also noted some degree of dyspnea, she then presented for admission. Cardiac evaluation findings: ECG showed sinus tachycardia 108 bpm and was otherwise unremarkable. Echocardiogram was normal. Telemetry showed predominantly sinus rhythm with PACs, she did have a 45- minute episode of atrial flutter beginning at 7:30 AM this morning which spontaneously reverted to sinus. Chest x-ray unremarkable. Troponin values 3.7, 2.9, 2.7 At the time of my evaluation, she had only mild anterior chest wall tenderness which was reproducible. She did have a paroxysmal but nonproductive cough. She denied dyspnea or other major somatic complaints at the time of my evaluation this morning. Allergies Allergy/AdvReac Type Severity Reaction Status Date / Time adhesive Allergy Unknown RED;RAW;TORN Verified 09/12/24 17:24 SKIN lobster Allergy Unknown per Verified 09/12/24 17:24 allergy testing : minor "a 2" on scale from 1-5 per pt. nut - unspecified Allergy Unknown brazil nut Verified 09/12/24 17:24 ? /dx per allergy testing: minor rxn. naproxen [From Aleve] AdvReac Unknown Vomiting Verified 09/12/24 17:24 Home Medications Medication Instructions Recorded Confirmed Type acetaminophen 500 mg tablet 1,000 mg (2 x 500 mg) PO Q6H PRN 02/11/19 10/05/24 Rx fever or pain #180 tabs vitamin E succinate 268 mg (400 150 units PO QAM 03/28/21 10/05/24 History unit) tablet albuterol sulfate 1.25 mg/3 mL 2.5 mg (6 mL) inhalation Q8H PRN 01/03/22 10/05/24 Rx solution for nebulization shortness of breath or wheezing #15 mL cholecalciferol (vitamin D3) 125 125 mcg PO DAILY 10/14/22 10/05/24 History mcg (5,000 unit) capsule vitamin K2 90 mcg capsule 90 mcg PO DAILY 10/14/22 10/05/24 History saw palmetto 500 mg capsule 500 mg PO DAILY 07/08/23 10/05/24 History albuterol sulfate 90 mcg/actuation 2 puff inhalation QID PRN 09/22/23 10/05/24 Rx aerosol inhaler shortness of breath or wheezing #6.7 grams red yeast rice 600 mg capsule 600 mg PO DAILY 01/12/24 10/05/24 History propafenone 325 mg 325 mg PO BID 05/03/24 10/05/24 History capsule,extended release 12 hr clobetasol 0.05 % scalp solution 1 applic topical BID 2 weeks #150 05/10/24 10/05/24 Rx mL montelukast 10 mg tablet 10 mg PO HS #90 tabs 06/13/24 10/05/24 Rx omeprazole 20 mg capsule,delayed 20 mg PO QAM #90 caps 06/13/24 10/05/24 Rx release bumetanide 1 mg tablet 1 mg PO UD PRN EDEMA OR WEIGHT GAIN 07/15/24 09/12/24 History diltiazem HCl 180 mg capsule,24 180 mg PO QAM 07/15/24 10/05/24 History hr,extended release fluocinolone 0.01 % topical body 1 applic topical UD PRN itching 07/15/24 10/05/24 History oil loperamide 2 mg tablet 2 mg PO UD PRN loose stool 07/15/24 10/05/24 History scopolamine base 1 mg over 3 days 1 patch transdermal Q3D PRN nausea 07/15/24 10/05/24 History transdermal patch and vomiting/sea sick turmeric 125 mg-carolyn root 6 1 tab PO DAILY 07/15/24 10/05/24 History mg-black pepper 50 mcg chewable tablet telmisartan 20 mg tablet 20 mg PO QAM #90 tabs 08/18/24 10/05/24 Rx ixekizumab 80 mg/mL subcutaneous 80 mg subcut .COMPLEX 09/12/24 10/05/24 History auto-injector (Carlos Autoinjector) apixaban 5 mg tablet (Eliquis) 5 mg PO BID #180 tabs 09/14/24 10/05/24 Rx lorazepam 0.5 mg tablet 0.5 mg PO TID PRN anxiety #30 tabs 09/19/24 10/05/24 Rx Patient History Medical History Anxiety History of COVID-19 total of 3 x. 2022 x 2. 2021 x1. History of anesthesia reaction age 18: heard conversations while under (elective sx). In hx sometimes slower to wake up. With one surgery woke up during surgery and had to put me right back under (does not remember feeling pain , does remember she was intubated) - pt not sure what surgery this was with , approx 15-20 yr ago per pt. Knee problem both knees/acl and meniscus problems. Sinus tachycardia random occurences since chemotherapy. Paroxysmal A-fib dx 2022 - last known occurence approx February 2024 : if occurs again, will plan for ablation per pt. History of kidney stones Right cataract History of left breast cancer (2004) hx sx, chemo and radiation. Pre-diabetes denies Asthma excerice/allergy induced. Last flare seasonal approx May 2024 - used inhaler then but no use since. Psoriasis Sleep apnea cpap Goiter nothing known goiter to pt/ always told thyroid looks enlarged, multiple tests over years for and all testing was okay per pt. TMJ (temporomandibular joint disorder) cracking on occ/remote hx locking. Spinal stenosis of lumbar region no limitations Scoliosis no limitations Hx of migraines History of colon polyps Hiatal hernia Acid reflux Hyperlipidemia borderline elevated HTN (hypertension) Lymphedema chronic problem/left arm / compression sleeve and lymphedema pump. No change baseline. Chronic sinusitis no known active infections. "sinus issues" - no change in baseline. History of fracture of wrist (03/2024) hx cast/no sx intervention. mostly healed per pt. History of chemotherapy CHEMOTHERAPEUTICS -- breast cancer 2004 History of food allergy seafood and nut BPPV (benign paroxysmal positional vertigo) Surgical History History of endoscopy History of colonoscopy History of elective History of cataract surgery L eye History of biopsy LAPAROSCOPY(DIAGNOSTIC) GYNECOLOGIC WITH BIOPSY History of laparoscopic cholecystectomy Status post breast lumpectomy (2004) L breast/"partial mastectomy" History of appendectomy Family History Brother , @ AGE 49 Esophageal cancer Mother History of kidney cancer Breast cancer IBS (irritable bowel syndrome) Family history of reaction to anesthesia mom aspirated everytime was under anesthesia, had extreme nausea and difficulty wakening. Grandmother (Maternal) Myocardial infarction Grandmother (Paternal) Myocardial infarction Other Pulmonary fibrosis Denies family history of Ovarian cancer Prostate cancer Colorectal cancer Social History Smoking Status: Light tobacco smoker Tobacco Type: Cigarettes Age Started Using Tobacco: 50; packs per day: 0.5; Cigarettes Per Day: never more than 0.5ppd/that is current/advised npo.; Second Hand Exposure: No; Do You Dip or Chew Tobacco: No; Hx Alcohol Use: Yes Alcohol type: beer, wine and hard liquor Alcohol Intake Frequency: 2-4 x/Month Hx Substance Use: No Preferred Language: [place]guill[place] Communication Ability: Effective Visual Impairment: No Limitations Hearing Ability: Normal Information Assoc Required: No Beliefs That Will Affect Care: None marital status: Current Living Situation: Spouse and Family current occupational status: employed 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 Afebrile. Normotensive. Pulse 100 bpm and regular. Respirations 20 but unlabored. Skin: no ecchymoses or generalized lesions. HEENT: unremarkable. Neck: JVP at the clavicle at 90 degrees, no carotid bruits. Lungs: Moderately decreased breath sounds without obvious wheezing. No accessory muscle use. Cardiac: regular/borderline tachycardic rhythm with sporadic ectopy, normal S1- 2, no murmur. Abdomen: benign. Extremities: no edema, pulses intact. Neurologic: normal affect and conversation, nonfocal. Results & Data Vital Signs (Past 12 Hours) Vital Signs Temp Pulse Pulse Resp BP Pulse Ox O2 Del Method 10/06/24 11:11 98.1 F 66 20 119/75 94 Room Air 10/06/24 11:00 101 H 03/06/25 08:23 96 H 10/06/24 08:10 144 H 10/06/24 07:51 97.7 F 92 H 18 102/71 92 Room Air 10/06/24 07:48 Room Air 10/06/24 06:45 94 H 10/06/24 02:50 86 18 106/68 96 Room Air, CPAP 10/06/24 02:28 12 Laboratory Results Normal CBC. Normal electrolytes, BUN 11, creatinine 0.56. Troponins as per HPI. PG Care Time/CCT Total # of Minutes Spent Total Time Spent with Patient: Total time spent is greater than 50% in coordination of care (as documented) at patient's floor/unit and/or counseling patient: Coding Level of Care Code 19804 IN/OBS CONSULT LVL 4,60M Diagnoses Atrial flutter, paroxysmal I48.92 Sinus tachycardia R00.0 Costochondritis M94.0 Subacute cough R05.2
[2024-10-06] MEDS: PROPAFENONE HCL 150 MG TABLET PO SCH (15:22)
[2024-10-06] MEDS: ONDANSETRON INJ 2 MG/ML 2 ML VIAL IV PRN (18:29)
[2024-10-06] MEDS: LORazepam 0.5 MG TAB PO PRN (21:24)
[2024-10-06] MEDS: guaiFENesin/CODEINE 100MG/10MG 5ML UDC PO PRN (21:25)
[2024-10-06] MEDS: MELATONIN 3 MG TAB PO PRN (21:25)
[2024-10-06 22:53] VITALS: O2SAT 94
[2024-10-07 08:01] VITALS: BP 112/75; RESP 20; TEMP 98.1
[2024-10-07 10:37] VITALS: PULSE 102
--- NOTE | 2024-10-19 10:40 | Discharge Summary ---
Discharge Summary Date of Service October 07, 2024 Principal Dx & Hospital Course #1 = Principal Diagnosis (1) Atrial flutter, paroxysmal: (2) Costochondritis: (3) Subacute cough: Plan 54-year-old female PMHx PAF on Eliquis, sinus tachycardia, prediabetes, HTN, dyslipidemia, JESSICA, GERD, depression/anxiety, asthma, breast CA s/p mastectomy and chemo (2004), and psoriatic arthritis presenting for chest pain, palpitations, and tachycardia. Aflutter - had rapid aflutter up to rate of 150s early in admission, treated in PCU with IV metoprolol, subsequently was back in sinus rhythm for >24h prior to discharge. -consulted cardiology Dr. Ocampo - her propafenone had been relatively under- dosed early in admission with conversion from extended release to short acting for formulary reasons. Dose was adjusted, remained in NSR. TTE was normal, normal CVP -Dr. Ocampo advised discharge on usual dose of extended release propafenone, but there is room to increase dose if necessary -continue po diltiazem and DOAC -has seen Dr. Wray EP at [facility] - follow up with him Chest pain - highly reproducible on palpation c/w costochondritis. Has had cough since [place] following viral URI, had another URI last week Psoriatic arthritis will make her more prone to this -improved -prednisone 20 mg po short course -robitussin AC -coughing and pain may provoke afib/flutter episodes Psoriatic arthritis mildly immunosuppressed on Taltz, IL-17 inhibitor JESSICA on noc CPAP Morbid obesity BMI 45 HTN - stable on current meds - dilt, telmisartan Asthma - not in exac. Montelukast, albuterol neb/inhaler GERD - elevated HOB, declines PPI Admission HPI Per Admitting Provider 54-year-old female PMHx PAF on eliquis, sinus tachycardia, prediabetes, HTN, dyslipidemia, JESSICA, GERD, depression/anxiety, asthma, breast CA s/p mastectomy and chemo (2004), and psoriatic arthritis presenting for chest pain, palpitations, and tachycardia. States that she woke up around 0645 the day of arrival secondary to chest pain in her central chest. Initially thought it was secondary to her psoriatic arthritis but states that by 0700, she felt her heart rate change and feel fast and irregular. Patient states that she does have a history of Afib and is able to tell when she flips in and out of Afib because she experiences palpitations, so she used her at home EKG-type device which showed that her HR was in the 100s. Patient went to work that day and noted that the pain was in her chest but also radiating to her back between her shoulder blades. Around 1400, patient states that she was leaning forward to get something off of the ground and started to feel very dizzy and started seeing stars. She denies any LOC and recovered quickly after standing back up. At that time, patient notes that she began to recognize that deep breaths causing her more chest pain and she started to feel some SOB because she could not comfortably take a deep breath. Pt has no history of VTE and takes Eliquis as prescribed. Otherwise denying abdominal pain, N/V/D/C, diaphoresis, LUTS, URI symptoms, F/C, numbness/tingling, or LOC. Pt states that family members in her house this past week did test positive for the flu but she did not. Additionally, patient does complain of R toe pain after an injury to her foot ~ 2 days ago where she hit it off a tote that had metal components to it. States that she has a hard time moving her 2nd + 3rd toes and that it is very ecchymotic. ED evaluation reveals leukocytosis 13.73, normal PT/INR, D-dimer pending, CMP grossly WNL with exception BUN/Cr ratio 21.9 and glucose 103, Ca 10.4, protein 8.5, initial troponin 2.9 pending repeat, mg pending, tsh pending; CXR WNL; negative for viral illness; EKG revealed sinus tachycardia at a rate of 108 bpm and no additional changes. Please see Dr. Mac's attestation for changes/additions to the treatment plan. Discharge Exam Last 24h vitals reviewed GEN: no acute distress, lying in bed HEENT: pupils equal, sclerae anicteric, moist MM RESP: normal WOB, CTAB CV: reg no mrg. TTP at costochondral joints along entire LSB, but less so today ABD: soft/nt/nd +BT : no boyer SKIN: warm and dry, no generalized rashes EXT: no edema, wwp, no inflammation knee/ankle/foot joints NEURO: AOx person, place, and situation. Face symmetric, speech normal, moves 4 ext spontaneously and equally Discharge Plan Discharge Items Patient Disposition: Home - Self-Care Reason For Visit: CHEST PAIN, TACHYCARDIA Discharge Diagnosis: Rapid atrial flutter, costochondritis Activity: Resume your previous activity Non-emergency contact: Primary Care Provider and Maple Sugar Maker Call non-emergency contact if: you have any medication questions and your symp toms worsen Follow-up/Referrals: Jesus Pearson PA-C [Physician Net Maker] - 10/13/24 1:00 pm (Hospital follow up scheduled October 13 at 1:00 at the [facility] [place]. ) Azeb Lisa DO [Primary Care Provider] - 10/17/24 9:20 am (Hospital follow up scheduled October 17 at 9:20) Carter Wray MD [Outside Practitioners] - (Please call to schedule follow up) Diet: Carb Consistent or DM2 and Heart Healthy Addtl Attending Provider Instructions: Palpitations - related to rapid Afib and Atrial flutter -Dr. Ocampo advised continuing your current propafenone dose, but can be increased to 425 mg twice a day if further episodes of aflutter -Echo was essentially normal, no evidence of heart attack -follow up with Jesus Pearson and Dr. Wray at [facility] Chest pain - pain where left sided ribs meet with sternum - this is called costochondritis -prednisone for a few days -robitussin AC to prevent so much coughing - this will reduce the chance of triggering rapid afib/flutter -I think you've had a few viruses this winter and have postviral cough -consistently elevate with pillows or elevate head of bed 6 inches with blocks, incase the cough is from nighttime reflux Take antibiotic eye drops for bilateral conjunctivitis - though may be viral See your opthalmologist if not improving Seek emergency evaluation if eye pain, loss of vision It was a pleasure taking care of you in the hospital Keke Martinez MD Pending Studies at Discharge: No Stand-Alone Forms: My [facility] [employer], Smoking Cessation Medications and DC Order Prescriptions: Continued albuterol sulfate 1.25 mg/3 mL solution for nebulization 2.5 mg inhalation Q8H PRN (Reason: shortness of breath or wheezing) Qty: 15 1RF montelukast 10 mg tablet 10 mg PO HS Qty: 90 3RF omeprazole 20 mg capsule,delayed release(DR/EC) 20 mg PO QAM Qty: 90 3RF telmisartan 20 mg tablet 20 mg PO QAM Qty: 90 3RF Eliquis 5 mg tablet 5 mg PO BID Qty: 180 3RF acetaminophen 500 mg tablet 1,000 mg PO Q6H PRN (Reason: fever or pain) Qty: 180 1RF cholecalciferol (vitamin D3) 125 mcg (5,000 unit) capsule 125 mcg PO DAILY vitamin K2 90 mcg capsule 90 mcg PO DAILY saw palmetto 500 mg capsule 500 mg PO DAILY Rx Instructions: give with food (meal/snack) red yeast rice 600 mg capsule 600 mg PO DAILY Rx Instructions: give with meal/snack albuterol sulfate 90 mcg/actuation HFA aerosol inhaler 2 puff inhalation QID PRN (Reason: shortness of breath or wheezing) Qty: 6.7 2RF Taltz Autoinjector 80 mg/mL auto-injector 80 mg subcut MONTHLY Rx Instructions: 80 mg subcutaneously once per month.; dose due 10/06/24 lorazepam 0.5 mg tablet 0.5 mg PO TID PRN (Reason: anxiety) Qty: 30 0RF vitamin E succinate 400 unit tablet 150 units PO QAM Patient Comments: 150 clobetasol 0.05 % Solution 1 applic TOPICAL BID PRN (Reason: Skin Irritation) ozpkcerh-udgltw-gyjtz pepper 125 mg-6 mg- 50 mcg Tablet,Chewable 1 tab PO DAILY Patient Comments: 3000 mg per pt diltiazem HCl 180 mg capsule,extended release 24 hr 180 mg PO QAM loperamide 2 mg tablet 2 mg PO UD PRN (Reason: loose stool) fluocinolone 0.01 % oil 1 applic topical DAILY PRN (Reason: itching) bumetanide 1 mg tablet 1 mg PO DAILY PRN (Reason: EDEMA OR WEIGHT GAIN) Patient Comments: haven't used in months Rx Instructions: Take 1 tablet by mouth each morning until your body weight is at baseline and edema is minimal, then take only as needed. scopolamine base 1 mg over 3 days patch 3 day 1 patch transdermal Q3D PRN (Reason: nausea and vomiting/sea sick) Rx Instructions: uses prn for motion sickness No Action propafenone 325 mg capsule,extended release 12 hr 325 mg PO BID cefuroxime axetil 500 mg tablet 500 mg PO BID 7 Days Qty: 14 0RF hydrocodone-homatropine [Hycodan (with homatropine)] 5-1.5 mg/5 mL syrup 5 ml PO Q6H PRN (Reason: cough) Qty: 250 0RF Discharge Orders: Discharge Order (Routine); Ordered 10/07/24 Ordered By: Keke Martinez Admission Data Admit Date/Time: 10/05/24 19:31 Attending Provider: Keke Martinez Admit Provider: Agnes Mac Primary Care Provider: Azeb Lisa. Other Providers: Petar Ocampo Other Interventions: Discharge Summary Assessment (RN) Last Done: 10/07/24 10:36 Hospital Stay Data Consultations 10/05/24 20:20 Consult Cardiology Routine Pending Results Patient Have Any Pending Studies at Discharge: No Discharge Instructions Given to Patient (Per Discharging Provider) Palpitations - related to rapid Afib and Atrial flutter -Dr. Ocampo advised continuing your current propafenone dose, but can be increased to 425 mg twice a day if further episodes of aflutter -Echo was essentially normal, no evidence of heart attack -follow up with Jesus Pearson and Dr. Wray at [facility] Chest pain - pain where left sided ribs meet with sternum - this is called costochondritis -prednisone for a few days -robitussin AC to prevent so much coughing - this will reduce the chance of triggering rapid afib/flutter -I think you've had a few viruses this winter and have postviral cough -consistently elevate with pillows or elevate head of bed 6 inches with blocks, incase the cough is from nighttime reflux Take antibiotic eye drops for bilateral conjunctivitis - though may be viral See your opthalmologist if not improving Seek emergency evaluation if eye pain, loss of vision It was a pleasure taking care of you in the hospital Keke Martinez MD Total Time Total Time Spent Total Time Spent (In Minutes): <30 minutes Coding Level of Care Code 45364 IN/OBS DISCH 30 MIN/LESS Diagnoses Atrial flutter, paroxysmal I48.92 Costochondritis M94.0 Subacute cough R05.2
== END 2024-10-07 10:48 | disposition home or self-care (01) ==
LOC: ED 16:08 → EDINP 16:08 → SUATTDRO 19:31 → 2N 21:44 → 2S 10-06 10:06